=== PATIENT | female | born 1965 | race Caucasian/White ===

== ENCOUNTER 2021-11-04 07:30 | Emergency (ER) | payer OTHER, SELFPAY ==
--- NOTE | ~2021-11-04 | XR_ITS ---
EXAMINATION: XR chest 1V CLINICAL INFORMATION: Reason for Exam weakness COMPARISON: None TECHNIQUE: XR chest 1V Lungs and Mary: Lungs are hyperinflated. Flattening of the hemidiaphragm and increased AP diameter suggest underlying air trapping disease. There is mild diffuse increased interstitial lung marking. There is patchy opacity projecting over the right upper lobe superimposed on the anterior third rib could be bony, vascular versus lung nodule. Pleura: Blunting of costophrenic angles probably pleural thickening. Heart: The heart is normal in size. Mediastinum: The mediastinum is within normal limits.. Bones: Skeletal structures included are normal for patient's age. XR/XR chest 1V IMPRESSION: Small patchy opacity projecting over the right upper lobe superimposed on the right anterior third rib could be bony versus lung nodule. Follow-up recommended. May consider CT scan for further evaluation. If not performed follow-up chest PA and lateral inspiration expiration advised. Hyperinflated lungs suggesting air trapping disease COPD. Blunting of costophrenic angles probably small pleural effusion or pleural thickening.
--- NOTE | ~2021-11-04 | CT_ITS ---
EXAMINATION: CT CHEST WITHOUT CONTRAST CLINICAL INFORMATION: Covid 19 weakness. Nodule. COMPARISON: Chest x-ray 11/04/2021 TECHNIQUE: Multidetector volumetric CT imaging of the chest was done. Axial MIP volume rendering provided. Sagittal and coronal reformatted images were obtained. This CT examination was performed using dose optimization techniques as appropriate, variously including the following: *Automated exposure control *Adjustment of mA and/or kV according to patient size (this includes techniques or standardized protocols for targeted exams where dose is matched to indication/reason for exam; i.e. extremities or head) *Use of iterative reconstruction technique DLP: 176 mGy-cm FINDINGS: Heart is normal in size. There is no pericardial effusion. Normal caliber thoracic aorta. No gross mediastinal lymphadenopathy identified on today's noncontrast imaging. No pathologically enlarged axillary lymph nodes. Central airways are patent although some peripheral mucous plugging is noted. Lungs are well aerated. Mild biapical scarring. Mild dependent atelectasis. A small amount of lingular and right middle lobe atelectasis also noted. There is no lobar consolidation. No pleural effusion or pneumothorax. No suspicious pulmonary nodules. Visualized portions of the upper abdomen demonstrate surgical changes consistent with prior cholecystectomy. Mild diffuse degenerative changes of the spine. CT/CT chest wo con IMPRESSION: No CT evidence for acute abnormality within the chest. Fleischner guidelines were followed.
[2021-11-04 07:37] VITALS: BP 125/83; BP 142/80; PULSE 102; PULSE 85; RESP 20; TEMP 36.9; O2SAT 98; O2SAT 99; BMI 20.5
--- NOTE | 2021-11-04 07:40 | ECG_ITS ---
Test Reason : covid Blood Pressure : / mmHG Vent. Rate : 097 BPM Atrial Rate : 097 BPM P-R Int : 144 ms QRS Dur : 086 ms QT Int : 384 ms P-R-T Axes : 079 065 061 degrees QTc Int : 487 ms Normal sinus rhythm Prolonged QT Abnormal ECG No previous ECGs available Referred By: Regi Boyd Electronically Signed By:BIRD ALVARSE
--- NOTE | 2021-11-04 07:41 | ED.NAVMDI ---
HPI - Nausea/Vomiting/Diarrhea General Chief complaint: General Medical Stated complaint: nausea w/dry heaves,+covid home test Time Seen by Provider: 11/04/21 07:35 Source: patient and EMS Mode of arrival: EMS Limitations: other (poor historian ) History of Present Illness HPI Narrative: EMS notes that they were called to the house 3 times tonight refusals at 3a, 5am and patient agreed to come at 7am. MD elicited complaint: nausea, diarrhea, abdominal pain and other (COVID + yesterday , mom has covid as well ) Pertinent past history: other (PTSD, severe anxiety when I am sick it sends signals to the panic button in my brain. ) Onset (ago): day(s) (reports symptms started on ) Associated nausea: Yes Associated abdominal pain: Yes Location of pain: diffuse Radiation: diffuse Pain consistency: constant Severity: moderate Quality: cramping Exacerbating factors: eating Relieving factors: none Context: sick contacts (mom has covid ) Associated symptoms: fever/chills, headaches, loss of appetite, malaise, nausea/vomiting, weakness, anxiety, fatigue and other (severe anxiety , sore throat) Related Data Previous Rx's Medication Instructions Recorded metoclopramide HCl 10 mg tablet 5 mg PO Q6H PRN #10 tab 11/04/21 (Reglan) Allergies Allergy/AdvReac Type Severity Reaction Status Date / Time azithromycin [AZITHROMYCIN] Allergy Unknown UNKNOWN Verified 11/04/21 08:15 bupropion [BUPROPION] Allergy Unknown UNKNOWN Verified 11/04/21 08:15 gluten [GLUTEN] Allergy Unknown UNKNOWN Verified 11/04/21 08:15 ibuprofen [IBUPROFEN] Allergy Unknown UNKNOWN Verified 11/04/21 08:15 omeprazole [From PRILOSEC] Allergy Unknown UNKNOWN Verified 11/04/21 08:15 soy [SOY] Allergy Unknown UNKNOWN Verified 11/04/21 08:15 sumatriptan [SUMATRIPTAN] Allergy Unknown UNKNOWN Verified 11/04/21 08:15 valacyclovir [From VALTREX] Allergy Unknown UNKNOWN Verified 11/04/21 08:15 amitriptyline Allergy Unknown Verified 11/04/21 08:15 chlorhexidine Allergy Hives Verified 11/04/21 08:15 [From Hibiclens] ondansetron [From Zofran] Allergy Unknown Verified 11/04/21 08:15 propofol Allergy Unknown Verified 11/04/21 08:15 sucralfate Allergy Dizziness Verified 11/04/21 08:15 nut - unspecified AdvReac Unknown UNKNOWN Verified 11/04/21 08:15 [NUT - UNSPECIFIED] DAIRY PRODUCTS Allergy Unknown HEADACHE Uncoded 11/04/21 08:15 SSRI Allergy Unknown UNKNOWN Uncoded 11/04/21 08:15 Review of Systems Review of Systems: Constitutional : No Weight loss, No Fever, pos Chills, pos Fatigue, pos Malaise ENT/Mouth : pos sore throat, No Rhinorrhea Eyes: No Eye Pain, No Swelling, No Redness Cardiovascular : No Chest Pain, No SOB, No Dyspnea on Exertion, No Orthopnea, No Edema, No Palpitations Respiratory : No Cough, No Sputum, No Wheezing Gastrointestinal : pos Nausea, No Vomiting, pos Diarrhea, No Constipation, pos abdominal Pain, No Hematochezia, No Melena Genitourinary : No Dysuria, No Urinary Frequency, No Hematuria, Musculoskeletal : No joint pain, No Myalgias, No Joint Swelling Skin : No Skin Lesions, No rash Neuro : pos Weakness, No Numbness, No Dizziness, No Headache Psych : pos Anxiety/Panic, No Depression Heme/Lymph: No Bruising, No Bleeding,No Lymphadenopathy Endocrine : No Polyuria, No Polydipsia All other systems reviewed and are negative Gastrointestinal: Gastrointestinal: Reports nausea PMFSH Past Medical History Attestation statement: The following information was validated with the patient. Medical History (Updated 11/04/21 @ 08:46 by Regi Boyd DO) Anxiety PTSD (post-traumatic stress disorder) Surgical History (Updated 11/04/21 @ 07:44 by Regi Boyd DO) S/P cholecystectomy Social History Social History (Updated 11/04/21 @ 07:44 by Regi Boyd DO) Alcohol intake: never Patient Tobacco Use Status: Never used Tobacco Use of substances other than those prescribed or required for medical reasons: No Advance Directives: No Advance Directives Information Provided: Yes Physical Exam Vital Signs: Vital Signs: Last Vital Signs Temp 98.4 F 11/04/21 07:37 Pulse 89 11/04/21 10:30 Resp 16 11/04/21 10:30 BP 115/67 11/04/21 10:30 Pulse Ox 99 04/25/22 10:30 BMI result Body Mass Index 20.5 Appearance: Alert. Oriented X3. Crying, anxious, shaking, mild acute distress. Eyes: Pupils equal, round and reactive to light. ENT: Pharynx normal. Neck: Normal inspection. Neck supple. CVS: Normal heart rate and rhythm. Pulses normal. Respiratory: No respiratory distress. Breath sounds normal. Abdomen: Soft and mild diffuse ttp but no rebound Skin: Skin warm and dry. Normal skin color. Normal skin turgor. Extremities: No lower extremity edema. No calf ttp Neuro: Oriented X 3. No motor deficit. No sensory deficit. Course Course Course Narrative: patient on day 5 of symptoms - only on famotidine on [facility] form the patient has no qualifying conditions she has anxiety, PTSD is due for her booster in one month has had two vaccines will obtain CT scan to evaluate nodule 98% on RA - able to tolerate PO no COVID pneumonia MDM - Nausea/Vomiting/Diarrhea MDM Narrative Medical decision making narrative: 56 yo female with severe anxiety, PTSD comes in stating she has nausea, diarrhea, sore throat she is vaccinated x 2 - her mom has covid and she tested positive at home yesterday. She cannot handle being sick and has severe anxiety and she is panicking. At this time will obtain basic labs, she has no CP/SOB. CXR for COVID pneumonia ordered. IVF, IV ativan, IV reglan for nausea - suspect this is mostly anxiety driven. She denies SI. Lab Data Result diagrams: 11/04/21 08:08 11/04/21 08:08 Labs: Lab Results 11/04/21 11/04/21 11/04/21 Range/Units 08:08 08:08 08:08 WBC 5.3 (4.8-10.8) X10*3/uL RBC 4.58 (4.20-5.50) X10*6/uL Hgb 13.7 (12.0-16.0) g/dl Hct 40.3 (37.0-47.0) % MCV 88.0 (80.0-98.0) fL MCH 29.9 (27.0-33.0) pg MCHC 34.0 (31.0-35.0) g/dl RDW 12.2 (11.0-16.0) % Plt Count 171 (160-400) X10*3/uL MPV 10.5 (9.4-12.3) fL Immature Gran % (Auto) 0.4 (0.0-0.4) % Neut % (Auto) 88.5 H (45-73) % Lymph % (Auto) 5.1 L (20-40) % [place] % (Auto) 5.6 (2-11) % Eos % (Auto) 0.0 (0-4) % Baso % (Auto) 0.4 (0-2) % Lymph # (Auto) 0.3 L (1.2-4.9) X10*3/uL [place] # (Auto) 0.3 (0.1-1.2) X10*3/uL Eos # (Auto) 0.0 (0.0-0.4) X10*3/uL Baso # (Auto) 0.0 (0.0-0.2) X10*3/uL Abs Immat Gran (auto) 0.02 (0.00-0.03) X10*3/uL Absolute Neuts (auto) 4.7 (2.0-8.3) x10*3/uL Absolute Nucleated RBC 0.000 (0.0-0.012) X10*3/uL Nucleated RBC % (auto) 0.0 (0.0-0.2) /100WBC Sodium 141 (135-145) mmol/L Potassium 3.5 (3.3-5.1) mmol/L Chloride 104 (96-108) mmol/L Carbon Dioxide 28 (22-29) mmol/L Anion Gap 13 (12-20) BUN 15 (9-16) mg/dL Creatinine 0.83 (0.5-1.4) mg/dL Estim Creat Clear Calc 53.6 Estimated GFR > 60 Random Glucose 123 H (60-115) mg/dL Calcium 9.9 (8.4-10.2) mg/dL Magnesium 1.9 (1.6-2.6) mg/dL Total Bilirubin 0.6 (0.0-1.0) mg/dL Direct Bilirubin 0.2 (0.0-0.5) mg/dL AST 28 (5-31) U/L ALT 27 (0-31) U/L Alkaline Phosphatase 61 (39-117) U/L Total Protein 6.8 (6.5-8.0) g/dL Albumin 4.5 (3.5-5.0) g/dL Lipase 13 (8-78) U/L Urine Color Urine Appearance Urine pH (5.0-8.0) Ur Specific [place] (1.005-1.025) Urine Protein (NEG-TRACE) MG/DL Urine Glucose (UA) (NEG) MG/DL Urine Ketones (NEG) MG/DL Urine Blood (NEG) Urine Nitrite (NEG) Ur Leukocyte Esterase (NEG) Urine RBC (0) /HPF Urine WBC (0-4) /HPF Ur Squamous Epith Cells /LPF Urine Bacteria /LPF COVID-19 (RASHEED) Positive A (Negative) COVID-19 Clin Com See Note 11/04/21 Range/Units 10:15 WBC (4.8-10.8) X10*3/uL RBC (4.20-5.50) X10*6/uL Hgb (12.0-16.0) g/dl Hct (37.0-47.0) % MCV (80.0-98.0) fL MCH (27.0-33.0) pg MCHC (31.0-35.0) g/dl RDW (11.0-16.0) % Plt Count (160-400) X10*3/uL MPV (9.4-12.3) fL Immature Gran % (Auto) (0.0-0.4) % Neut % (Auto) (45-73) % Lymph % (Auto) (20-40) % [place] % (Auto) (2-11) % Eos % (Auto) (0-4) % Baso % (Auto) (0-2) % Lymph # (Auto) (1.2-4.9) X10*3/uL [place] # (Auto) (0.1-1.2) X10*3/uL Eos # (Auto) (0.0-0.4) X10*3/uL Baso # (Auto) (0.0-0.2) X10*3/uL Abs Immat Gran (auto) (0.00-0.03) X10*3/uL Absolute Neuts (auto) (2.0-8.3) x10*3/uL Absolute Nucleated RBC (0.0-0.012) X10*3/uL Nucleated RBC % (auto) (0.0-0.2) /100WBC Sodium (135-145) mmol/L Potassium (3.3-5.1) mmol/L Chloride (96-108) mmol/L Carbon Dioxide (22-29) mmol/L Anion Gap (12-20) BUN (9-16) mg/dL Creatinine (0.5-1.4) mg/dL Estim Creat Clear Calc Estimated GFR Random Glucose (60-115) mg/dL Calcium (8.4-10.2) mg/dL Magnesium (1.6-2.6) mg/dL Total Bilirubin (0.0-1.0) mg/dL Direct Bilirubin (0.0-0.5) mg/dL AST (5-31) U/L ALT (0-31) U/L Alkaline Phosphatase (39-117) U/L Total Protein (6.5-8.0) g/dL Albumin (3.5-5.0) g/dL Lipase (8-78) U/L Urine Color YELLOW Urine Appearance HAZY Urine pH 6.0 (5.0-8.0) Ur Specific [place] 1.010 (1.005-1.025) Urine Protein NEG (NEG-TRACE) MG/DL Urine Glucose (UA) NEG (NEG) MG/DL Urine Ketones 15 (NEG) MG/DL Urine Blood 2+ H (NEG) Urine Nitrite NEG (NEG) Ur Leukocyte Esterase NEG (NEG) Urine RBC 1-4 (0) /HPF Urine WBC 0 (0-4) /HPF Ur Squamous Epith Cells 1+ /LPF Urine Bacteria TRACE /LPF COVID-19 (RASHEED) (Negative) COVID-19 Clin Com ECG Data Attestation: I personally reviewed and interpreted this ECG as follows: ECG interpretation date: 11/04/21 ECG interpretation time: 08:33 Interpretation: Rate: 97 Rhythm: NSR [place]: normal Normal P waves. Normal DERIC. Normal QRS complex. ST T wave : normal no IHSAN qTC: prolonged prior studies: no acute ischemia The study has been interpreted contemporaneously by me. . Discharge Plan Discharge Clinical Impression: Anxiety, COVID-19 Patient Disposition: Home, Self-Care Instructions: Anxiety (ED), COVID-19 (Coronavirus Disease 2019) (ED) Additional Instructions: return to ED for any worsening symptoms or concerns if you become so short of breath you cannot walk to the bathroom please seek medical care there is no evidence of COVID pneumonia on your CT chest Prescriptions: New metoclopramide HCl [Reglan] 10 mg tablet 5 mg PO Q6H PRN (Reason: nausea and vomiting) Qty: 10 0RF Stand Alone Forms: Work/School Release
[2021-11-04 08:12] LABS: MANUAL DIFF FLAG NO
[2021-11-04 08:15] LABS: Basophils Percent Auto 0.4 % (0-2); Hematocrit 40.3 % (37.0-47.0); Hemoglobin 13.7 g/dl (12.0-16.0); Imm Gran Abs Auto 0.02 X10*3/uL (0.00-0.03); Imm Gran Pct Auto 0.4 % (0.0-0.4); Lymphocytes Absolute Auto 0.3 X10*3/uL (1.2-4.9); Lymphocytes Percent Auto 5.1 % (20-40); Mean Corpuscular Hemoglobin 29.9 pg (27.0-33.0); Mean Platelet Volume 10.5 fL (9.4-12.3); Monocytes Absolute Auto 0.3 X10*3/uL (0.1-1.2); Monocytes Percent Auto 5.6 % (2-11); Neutrophils Absolute Auto 4.7 x10*3/uL (2.0-8.3); Neutrophils Percent Auto 88.5 % (45-73); Platelet Count 171 X10*3/uL (160-400); Red Blood Count 4.58 X10*6/uL (4.20-5.50); Red Cell Distribution Width 12.2 % (11.0-16.0); White Blood Count 5.3 X10*3/uL (4.8-10.8)
[2021-11-04] MEDS: 0.9 % Sodium Chloride 1,000 ML 999 ML IVCONT (08:16)
[2021-11-04] MEDS: LORazepam 2 MG/ML VIAL 0.5 MG IVPUSH (08:17)
[2021-11-04] MEDS: Metoclopramide HCl 10 MG/2 ML VIAL 5 MG IVPUSH (08:20)
[2021-11-04 08:31] LABS: Alanine Aminotransferase 27 U/L (0-31); Albumin Level 4.5 g/dL (3.5-5.0); Alkaline Phosphatase 61 U/L (39-117); Anion Gap 13 (12-20); Aspartate Amino Transferase 28 U/L (5-31); Bilirubin Direct 0.2 mg/dL (0.0-0.5); Bilirubin Total 0.6 mg/dL (0.0-1.0); Blood Urea Nitrogen 15 mg/dL (9-16); Calcium 9.9 mg/dL (8.4-10.2); Carbon Dioxide 28 mmol/L (22-29); Chloride 104 mmol/L (96-108); Creatinine Clr Calc Pharmacy 53.6; Estimated Glomerular Filt Rate > 60; Glucose Random 123 mg/dL (60-115); Lipase 13 U/L (8-78); Magnesium 1.9 mg/dL (1.6-2.6); Potassium 3.5 mmol/L (3.3-5.1); Sodium 141 mmol/L (135-145); Total Protein 6.8 g/dL (6.5-8.0)
[2021-11-04 08:39] LABS: COVID-19 Test Positive (Negative); IDNOW Serial# 16C4AD1C
[2021-11-04 08:46] VITALS: BP 119/76; PULSE 97; RESP 16; O2SAT 99
[2021-11-04 10:21] LABS: Appearance Urine HAZY; Color Urine YELLOW; Glucose Urine UA NEG (NEG); Leukocyte Esterase Urine NEG (NEG); Nitrite Urine NEG (NEG); UACC Culture Trigger NO; Urine Blood 2+ (NEG); Urine Ketones 15 MG/DL (NEG); Urine Protein NEG (NEG-TRACE)
[2021-11-04 10:30] VITALS: BP 115/67; PULSE 89; RESP 16; O2SAT 99
[2021-11-04] MEDS: Magnesium Hydrox/Alum Hydrox 30 ML ORAL.SUSP 15 ML PO (10:31)
[2021-11-04] MEDS: Acetaminophen 325 MG TABLET PO (10:31)
[2021-11-04 10:49] LABS: Squamous Epithelial Cell Urine 1+ /LPF
[2021-11-04 10:50] LABS: Bacteria Urine TRACE /LPF; WBC Urine 0 /HPF (0-4)
[2021-11-04 12:05] VITALS: BP 113/61; PULSE 79; RESP 16; O2SAT 99
--- NOTE | 2021-11-04 12:29 | PHA.MEDREC ---
Pharmacy Consult ? Medication Reconciliation Pharmacy has completed the medication reconciliation. No remarkable issues. Ana Pandya, AndraD
== END 2021-11-04 12:34 | disposition home or self-care (01) ==
PROVIDERS: Emergency Provider Emergency Medicine; PCP Family Medicine
DX: U07.1 COVID-19 (principal); F41.1 Generalized anxiety disorder; F43.0 Acute stress reaction; M54.6 Pain in thoracic spine; Z79.899 Other long term (current) drug therapy
CPT/HCPCS: 71045; 71250; 80048; 80076; 81001; 83690; 83735; 85025; 87635; 93005; 96361; 96374; 96375; 99284; J2060; J2765

== ENCOUNTER 2023-08-16 10:09 | Emergency (ER) | payer OTHER, SELFPAY ==
--- NOTE | ~2023-08-16 | CT_ITS ---
EXAMINATION: CT ABDOMEN AND PELVIS WITH CONTRAST CLINICAL INFORMATION: Upper abdominal pain, tenderness to palpation, nausea/vomiting/diarrhea COMPARISON: None available. TECHNIQUE: Multidetector volumetric images were obtained from the superior aspect of the liver through the pubic symphysis following administration 85 mL of Omnipaque 350 intravenous contrast. Sagittal and coronal reformatted images were obtained on the technologist's workstation. Oral contrast: No This CT examination was performed using dose optimization techniques as appropriate, variously including the following: *Automated exposure control *Adjustment of mA and/or kV according to patient size (this includes techniques or standardized protocols for targeted exams where dose is matched to indication/reason for exam; i.e. extremities or head) *Use of iterative reconstruction technique DLP: 292 mGy-cm FINDINGS: LUNG BASES: Unremarkable. LIVER AND BILIARY TREE: Unremarkable. GALLBLADDER: Status post cholecystectomy. PANCREAS: Unremarkable. SPLEEN: Unremarkable. ADRENAL GLANDS: Unremarkable. KIDNEYS AND URETERS: Unremarkable. GASTROINTESTINAL TRACT: Mild multifocal wall thickening of the distal ileum (series 6, image 39). No bowel dilation or perienteric fat stranding/fluid collections. Mild colonic diverticulosis without evidence of acute diverticulitis. Normal appendix. VASCULAR: Unremarkable LYMPH NODES: No lymphadenopathy. PERITONEUM: No ascites. BLADDER: Mild urinary bladder wall thickening, greater than expected for degree of distention. PELVIC VISCERA: Unremarkable. ABDOMINAL AND PELVIC WALL: Unremarkable. OSSEOUS STRUCTURES: Unremarkable. CT/CT abdomen pelvis w IV con IMPRESSION: 1. Mild multifocal wall thickening of the distal ileum, which may reflect infectious/inflammatory enteritis. No bowel dilation or perienteric fat stranding/fluid collections. 2. Mild urinary bladder wall thickening, greater than expected for degree of distention. Recommend correlation with urinalysis to exclude cystitis.
[2023-08-16 10:17] VITALS: BP 135/84; BP 141/74; PULSE 103; PULSE 73; RESP 16; TEMP 36.4; O2SAT 100; BMI 21.4
--- NOTE | 2023-08-16 10:39 | PC.NURSE ---
pt comes from home for n/v/d and increased anxiety since last night. pt came in teary, yelling, and punching the stretcher and stating she is angry from anxiety. pt has history of PTSD, anxiety, and panic disorder. all exacerbate when sick. takes lorazepam. pt sts unable to take home lorazepam due to n/v. pt able to calm down, changed over to hospital attire. vss. 20G IV placed to LAC by EMS and pt given 250cc fluids. pt stating she is dehydrated and needs fluids, nausea medication, pain medication, and ativan in order to feel better. awaiting provider pickup. call justice within reach. plan of care ongoing.
--- NOTE | 2023-08-16 10:45 | ED.GENADULT ---
HPI - General Adult General Chief complaint: Nausea/Vomiting/Diarrhea Stated complaint: NAUSEA VOMITING Time Seen by Provider: 08/16/23 10:21 Source: patient Mode of arrival: EMS Limitations: no limitations History of Present Illness HPI narrative: Patient is a 57-year-old female who presents to the emergency department via EMS for evaluation. She reports since yesterday with nausea and diarrhea, reports her stools to be yellow in color with a few episodes, and poor p.o. intake. Today she developed vomiting with yellow emesis, no relief from Reglan at home. She is associated upper abdominal pain that she reports is primarily to the epigastric region but also to her right upper abdomen, reports a history of cholecystectomy in 2018. She does report that she is feeling increasingly anxious, she was unable to take her lorazepam at home today due to her nausea and was worried that she may vomit. Denies fevers, chills, headache, neck pain, back pain, hematochezia, melena, coffee-ground like emesis, urinary symptoms. Related Data Home Medications Medication Instructions Recorded Confirmed acetaminophen 325 mg tablet 325 mg PO QID PRN Pain 11/04/21 11/04/21 (Tylenol) famotidine 20 mg tablet 20 mg PO BEDTIME 11/04/21 11/04/21 lorazepam 0.5 mg tablet 0.5 mg PO DAILY PRN Anxiety 11/04/21 11/04/21 magnesium 250 mg tablet 250 mg PO DAILY 11/04/21 11/04/21 omega-3 fatty acids-fish oil 684 1 cap PO DAILY 11/04/21 11/04/21 mg-1,200 mg capsule,delayed release Previous Rx's Medication Instructions Recorded metoclopramide HCl 10 mg tablet 5 mg (1/2 x 10 mg) PO Q6H PRN 11/04/21 (Reglan) nausea and vomiting #10 tabs metoclopramide HCl 10 mg tablet 10 mg PO Q6H PRN nausea and 08/16/23 (Reglan) vomiting #10 tabs Allergies Allergy/AdvReac Type Severity Reaction Status Date / Time azithromycin [AZITHROMYCIN] Allergy Unknown UNKNOWN Verified 11/04/21 08:15 bupropion [BUPROPION] Allergy Unknown UNKNOWN Verified 11/04/21 08:15 gluten [GLUTEN] Allergy Unknown UNKNOWN Verified 11/04/21 08:15 ibuprofen [IBUPROFEN] Allergy Unknown UNKNOWN Verified 11/04/21 08:15 omeprazole [From PRILOSEC] Allergy Unknown UNKNOWN Verified 11/04/21 08:15 soy [SOY] Allergy Unknown UNKNOWN Verified 11/04/21 08:15 sumatriptan [SUMATRIPTAN] Allergy Unknown UNKNOWN Verified 11/04/21 08:15 valacyclovir [From VALTREX] Allergy Unknown UNKNOWN Verified 11/04/21 08:15 amitriptyline Allergy Unknown Verified 11/04/21 08:15 chlorhexidine Allergy Hives Verified 11/04/21 08:15 [From Hibiclens] ondansetron [From Zofran] Allergy Unknown Verified 11/04/21 08:15 propofol Allergy Unknown Verified 11/04/21 08:15 sucralfate Allergy Dizziness Verified 11/04/21 08:15 nut - unspecified AdvReac Unknown UNKNOWN Verified 11/04/21 08:15 [NUT - UNSPECIFIED] DAIRY PRODUCTS Allergy Unknown HEADACHE Uncoded 11/04/21 08:15 SSRI Allergy Unknown UNKNOWN Uncoded 11/04/21 08:15 Review of Systems Review of Systems: Yes all other systems are reviewed and are negative PMFSH Past Medical History Attestation statement: The following information was validated with the patient. Source: old records reviewed Medical History Anxiety PTSD (post-traumatic stress disorder) Surgical History S/P cholecystectomy Social History Social History (Updated 11/04/21 @ 07:44 by Yvonne Boyd DO) Alcohol intake: never Patient Tobacco Use Status: Never used Tobacco Smoked in Last 30 Days: No Use of substances other than those prescribed or required for medical reasons: No Advance Directives: Yes Advance Directives Information Provided: No Advance Directives on File: No Physical Exam ED Vital Signs: Vital Signs - 24 hr 08/16/23 10:17 08/16/23 12:35 Temperature 97.5 F 97.8 F Pulse Rate 73 74 Respiratory Rate 16 16 Blood Pressure 141/74 H 135/81 Pulse Oximetry 100 100 Oxygen Delivery Method Room Air Room Air BMI result Body Mass Index 21.4 Appearance: Alert.?Oriented to person, place and time. No acute distress.?Normal affect. Eyes: Pupils equal, round and reactive to light.? ENT: Pharynx normal.?? Neck: Normal inspection.? Neck supple.?? CVS: Heart sounds normal. Normal heart rate and rhythm.? Pulses normal.?? Respiratory: No respiratory distress.? Lung sounds clear to auscultation bilaterally?? Abdomen: Soft with diffuse upper abdominal tenderness upon palpation Normoactive bowel sounds. No pulsatile mass.?? Skin: Skin warm and dry.? Normal skin color.? Normal skin turgor.?? Extremities: No lower extremity edema.? No calf ttp? Neuro: Moves all extremities spontaneously. Sensation intact bilaterally. CN II-XII intact. No focal neuro deficits. Ambulates with normal steady gait. Course Reevaluation(s) Reevaluation #1: CBC is without leukocytosis or anemia. Overall unremarkable CMP, lipase within normal limits. Urinalysis with microscopic hematuria which has been seen and prior urinalysis as well, no evidence of urinary infection. COVID-19/influ[address] CT of the abdomen and pelvis revealing multifocal wall thickening of the distal ileum reflecting infectious versus inflammatory enteritis, mild thickening of the bladder wall however as aforementioned do not suspect this to be acute UTI, culture to follow. Discussed concern for possible viral etiology, given duration would not initiate empiric antibiotics at this time, discussed conservative treatment, and re-evaluation should symptoms not improve after 7 days or significantly worsen. Tolerated PO trial. Does not appear to have acute dehydration, intractable vomiting, electrolyte abnormality or KATHARINE, no significant comorbidities to suggest indication for hospitalization. Stable for discharge, strict return precautions. All questions answered. Time: 14:11 Reevaluation #2: Medications Administered Discontinued Medications Generic Name Dose Route Start Last Admin Trade Name Bennyq PRN Reason Stop Dose Admin Sodium Chloride 1,000 mls @ 999 mls/hr 08/16/23 11:30 08/16/23 12:31 Ns IV 08/16/23 12:30 999 mls/hr .Q1H1M MIL Administration Iohexol 85 ml 08/16/23 12:10 08/16/23 12:10 Iohexol 350 Mg/Ml 100 Ml Infus..Btl IV 08/16/23 12:11 85 ml ONCE ONE Administration Metoclopramide HCl 10 mg 08/16/23 11:16 08/16/23 12:31 Metoclopramide Hcl 10 Mg/2 Ml Vial IVPUSH 08/16/23 11:17 10 mg ONCE ONE Administration Medical Decision Making Medical Decision Making [facility] Narrative: Patient is a 57-year-old female with past medical history anxiety, PTSD, presenting to emergency department for evaluation of nausea vomiting diarrhea and abdominal pain as per HPI. Notable diffuse upper abdominal tenderness upon palpation, afebrile without tachycardia tachypnea or hypoxia. Will obtain CBC to evaluate for leukocytosis/ anemia, CMP and lipase to evaluate for abnormal electrolytes /abnormal renal function/ abnormal hepatic/biliary function, CT AP, viral testing and Urinalysis. Differential Diagnosis Differential Diagnoses: The differential diagnosis associated with the presentation includes (gastritis, PUD, viral syndrome, CBD stone, pancreatitis) Lab Data 08/16/23 11:37 08/16/23 11:37 Labs: Lab Results 08/16/23 08/16/23 Range/Units 11:37 12:35 WBC 5.9 (4.8-10.8) X10*3/uL RBC 4.39 (4.20-5.50) X10*6/uL Hgb 13.3 (12.0-16.0) g/dl Hct 38.5 (37.0-47.0) % MCV 87.7 (80.0-98.0) fL MCH 30.3 (27.0-33.0) pg MCHC 34.5 (31.0-35.0) g/dl RDW 12.1 (11.0-16.0) % Plt Count 183 (160-400) X10*3/uL MPV 10.7 (9.4-12.3) fL Immature Gran % (Auto) 0.2 (0.0-0.4) % Neut % (Auto) 88.9 H (45-73) % Lymph % (Auto) 7.5 L (20-40) % [place] % (Auto) 2.7 (2-11) % Eos % (Auto) 0.2 (0-4) % Baso % (Auto) 0.5 (0-2) % Lymph # (Auto) 0.4 L (1.2-4.9) X10*3/uL [place] # (Auto) 0.2 (0.1-1.2) X10*3/uL Eos # (Auto) 0.0 (0.0-0.4) X10*3/uL Baso # (Auto) 0.0 (0.0-0.2) X10*3/uL Abs Immat Gran (auto) 0.01 (0.00-0.03) X10*3/uL Absolute Neuts (auto) 5.2 (2.0-8.3) x10*3/uL Absolute Nucleated RBC 0.000 (0.0-0.012) X10*3/uL Nucleated RBC % (auto) 0.0 (0.0-0.2) /100WBC Sodium 140 (135-145) mmol/L Potassium 3.9 (3.3-5.1) mmol/L Chloride 106 (96-108) mmol/L Carbon Dioxide 27 (22-29) mmol/L Anion Gap 11 L (12-20) BUN 12 (9-16) mg/dL Creatinine 0.73 (0.5-1.4) mg/dL Estim Creat Clear Calc 60.3 Estimated GFR > 60 Random Glucose 104 (60-115) mg/dL Calcium 9.3 D (8.4-10.2) mg/dL Total Bilirubin 0.4 (0.0-1.0) mg/dL AST 25 (5-31) U/L ALT 21 (0-31) U/L Alkaline Phosphatase 58 (39-117) U/L Total Protein 6.7 (6.5-8.0) g/dL Albumin 4.2 (3.5-5.0) g/dL Lipase 23 (8-78) U/L Urine Color Yellow Urine Appearance Clear Urine pH 7.5 (5.0-9.0) Ur Specific [place] 1.020 (1.005-1.025) Urine Protein Negative (Neg-Trace) mg/dL Urine Glucose (UA) Negative (Negative) mg/dL Urine Ketones Trace (Negative) mg/dL Urine Blood Small (1+) H (Negative) Urine Nitrite Negative (Negative) Ur Leukocyte Esterase Negative (Negative) Urine RBC 3-5 H (0-2) /HPF Urine WBC 0-5 (0-5) /HPF Ur Squamous Epith Cells 0-2 (0-2) /HPF Urine Bacteria None Seen (None Seen) Hyaline Casts 0-2 (0-2) /LPF COVID-19 (RASHEED) Negative (Negative) COVID-19 Clin Com See Note Influenza Type A (LEONCIO) Negative (Negative) Influenza Type B (LEONCIO) Negative (Negative) Influenza A & B Note See Note Discharge Plan Discharge Clinical Impression: Gastroenteritis Patient Disposition: Home, Self-Care Instructions: Gastroenteritis (ED) Additional Instructions: I suspect that you likely have a viral infection or food borne illness that is resulting in these symptoms. Consume only clear liquids today and tomorrow and then progress to a bland diet Introduce a bland diet including crackers, bananas, rice, soup, toast, and boiled vegetables. This may progress to plain baked or boiled chicken or turkey. Avoid dairy products or foods high in fat or grease. Use Reglan as needed for nausea. Follow-up with your primary care provider within 3 days. Return back to emergency department any new or worsening symptoms or concerns. Prescriptions: New metoclopramide HCl [Reglan] 10 mg tablet 10 mg PO Q6H PRN (Reason: nausea and vomiting) Qty: 10 0RF No Action metoclopramide HCl [Reglan] 10 mg tablet 5 mg PO Q6H PRN (Reason: nausea and vomiting) Qty: 10 0RF acetaminophen [Tylenol] 325 mg Tablet 325 mg PO QID PRN (Reason: Pain) famotidine 20 mg Tablet 20 mg PO BEDTIME lorazepam 0.5 mg Tablet 0.5 mg PO DAILY PRN (Reason: Anxiety) magnesium 250 mg Tablet 250 mg PO DAILY [place] 3 Fish Oil 684-1,200 mg Capsule,Delayed Release(Dr/Ec) 1 cap PO DAILY Referrals: Ирина Chan MD [Primary Care Provider] -
[2023-08-16 11:41] LABS: MANUAL DIFF FLAG NO
[2023-08-16 11:49] LABS: Basophils Percent Auto 0.5 % (0-2); Eosinophils Percent Auto 0.2 % (0-4); Hematocrit 38.5 % (37.0-47.0); Hemoglobin 13.3 g/dl (12.0-16.0); Imm Gran Abs Auto 0.01 X10*3/uL (0.00-0.03); Imm Gran Pct Auto 0.2 % (0.0-0.4); Lymphocytes Absolute Auto 0.4 X10*3/uL (1.2-4.9); Lymphocytes Percent Auto 7.5 % (20-40); Mean Corpuscular HGB Conc 34.5 g/dl (31.0-35.0); Mean Corpuscular Hemoglobin 30.3 pg (27.0-33.0); Mean Corpuscular Volume 87.7 fL (80.0-98.0); Mean Platelet Volume 10.7 fL (9.4-12.3); Monocytes Absolute Auto 0.2 X10*3/uL (0.1-1.2); Monocytes Percent Auto 2.7 % (2-11); Neutrophils Absolute Auto 5.2 x10*3/uL (2.0-8.3); Neutrophils Percent Auto 88.9 % (45-73); Platelet Count 183 X10*3/uL (160-400); Red Blood Count 4.39 X10*6/uL (4.20-5.50); Red Cell Distribution Width 12.1 % (11.0-16.0); White Blood Count 5.9 X10*3/uL (4.8-10.8)
[2023-08-16 12:01] LABS: IDNOW Serial# 9DB6401D; Influenza A Negative (Negative); Influenza B2 Negative (Negative)
[2023-08-16 12:02] LABS: COVID-19 Test Negative (Negative); IDNOW Serial# 58CA691E
[2023-08-16 12:04] LABS: Alanine Aminotransferase 21 U/L (0-31); Albumin Level 4.2 g/dL (3.5-5.0); Alkaline Phosphatase 58 U/L (39-117); Anion Gap 11 (12-20); Aspartate Amino Transferase 25 U/L (5-31); Bilirubin Total 0.4 mg/dL (0.0-1.0); Blood Urea Nitrogen 12 mg/dL (9-16); Calcium 9.3 mg/dL (8.4-10.2); Carbon Dioxide 27 mmol/L (22-29); Chloride 106 mmol/L (96-108); Creatinine Clr Calc Pharmacy 60.3; Estimated Glomerular Filt Rate > 60; Glucose Random 104 mg/dL (60-115); Lipase 23 U/L (8-78); Potassium 3.9 mmol/L (3.3-5.1); Sodium 140 mmol/L (135-145); Total Protein 6.7 g/dL (6.5-8.0)
[2023-08-16] MEDS: iohexoL 350 MG/ML 100 ML INFUS..BTL 85 ML IV (12:10)
[2023-08-16] MEDS: Metoclopramide HCl 10 MG/2 ML VIAL IVPUSH (12:31)
[2023-08-16] MEDS: 0.9 % Sodium Chloride 1,000 ML 999 ML IV (12:31)
[2023-08-16 12:35] VITALS: BP 135/81; PULSE 74; RESP 16; TEMP 36.6; O2SAT 100
[2023-08-16 12:43] LABS: Appearance Urine Clear; Color Urine Yellow; Glucose Urine UA Negative (Negative); Leukocyte Esterase Urine Negative (Negative); Nitrite Urine Negative (Negative); PH 7.5 (5.0-9.0); UMIC TRIGGER UACC YES; Urine Blood Small (1+) (Negative); Urine Ketones Trace mg/dL (Negative); Urine Protein Negative (Neg-Trace)
[2023-08-16 12:58] LABS: Bacteria Urine None Seen (None Seen); Hyaline Casts Urine 0-2 /LPF (0-2); Squamous Epithelial Cell Urine 0-2 /HPF (0-2); WBC Urine 0-5 /HPF (0-5)
== END 2023-08-16 14:42 | disposition home or self-care (01) ==
PROVIDERS: Nurse Practitioner Family; Emergency Provider Student in an Organized Health Care Education/Training Program; PCP Family Medicine
DX: K52.9 Noninfective gastroenteritis and colitis, unspecified (principal); R11.2 Nausea with vomiting, unspecified; Z11.52 Encounter for screening for COVID-19; Z79.899 Other long term (current) drug therapy
CPT/HCPCS: 74177; 80053; 81001; 83690; 85025; 87502; 87635; 96361; 96374; 99284; J2765; Q9967

== ENCOUNTER 2024-01-17 12:02 | Emergency (ER) | payer OTHER, SELFPAY ==
[2024-01-17 12:06] VITALS: BP 128/78; PULSE 80; O2SAT 99
[2024-01-17 12:31] VITALS: BP 130/107; PULSE 75; RESP 16; TEMP 36.5; O2SAT 100; BMI 21.5
--- NOTE | 2024-01-17 12:50 | ED.GENADULT ---
HPI - General Adult General Chief complaint: Nausea/Vomiting/Diarrhea Stated complaint: NAUSEA VOMITING Time Seen by Provider: 01/17/24 12:48 Source: patient, family (patient's daughter) and EMS Mode of arrival: EMS Limitations: no limitations History of Present Illness ED Provider: Carlotta Lozada PA-C HPI narrative: Patient is a 58 year old assigned female at with a history of anxiety presenting to the emergency department today with nausea and increased anxiety this morning. Patient states that she has been feeling very anxious lately, under much more stress being in charge of organizing her parents lives / helping her father care for her demented mother. Patient states that the humidity makes her anxiety much worse and the weather lately has been bad. Patient states that her HVAC system also hasn't been working as well as she would like it to. Patient denies any dizziness, lightheadedness, abdominal pain, fever, chills, blurry vision, double vision, loss of vision, chest pain, difficulty breathing, shortness of breath, back pain, night sweats, pain with urination, increased urinary frequency, increased urinary urgency, blood in her urine or stool, syncope or a near syncopal episode, recent trauma or falls, bowel incontinence, bladder incontinence, or any other complaints at this time. Onset (ago): day(s) Severity: mild Severity scale (1-10): 3 Relieving factors: none Exacerbating factors: none Associated symptoms: nausea/vomiting Treatments prior to arrival: none Related Data Home Medications ?Medication ?Instructions ?Recorded ?Confirmed acetaminophen 325 mg tablet 325 mg PO QID PRN Pain 11/04/21 11/04/21 (Tylenol) famotidine 20 mg tablet 20 mg PO BEDTIME 11/04/21 11/04/21 lorazepam 0.5 mg tablet 0.5 mg PO DAILY PRN Anxiety 11/04/21 11/04/21 magnesium 250 mg tablet 250 mg PO DAILY 11/04/21 11/04/21 omega-3 fatty acids-fish oil 684 1 cap PO DAILY 11/04/21 11/04/21 mg-1,200 mg capsule,delayed release Previous Rx's ?Medication ?Instructions ?Recorded metoclopramide HCl 10 mg tablet 5 mg (1/2 x 10 mg) PO Q6H PRN 11/04/21 (Reglan) nausea and vomiting #10 tabs metoclopramide HCl 10 mg tablet 10 mg PO Q6H PRN nausea and 08/16/23 (Reglan) vomiting #10 tabs Allergies Allergy/AdvReac Type Severity Reaction Status Date / Time azithromycin [AZITHROMYCIN] Allergy Unknown UNKNOWN Verified 01/17/24 12:33 bupropion [BUPROPION] Allergy Unknown UNKNOWN Verified 01/17/24 12:33 gluten [GLUTEN] Allergy Unknown UNKNOWN Verified 01/17/24 12:33 ibuprofen [IBUPROFEN] Allergy Unknown UNKNOWN Verified 01/17/24 12:33 omeprazole [From PRILOSEC] Allergy Unknown UNKNOWN Verified 01/17/24 12:33 soy [SOY] Allergy Unknown UNKNOWN Verified 01/17/24 12:33 sumatriptan [SUMATRIPTAN] Allergy Unknown UNKNOWN Verified 01/17/24 12:33 valacyclovir [From VALTREX] Allergy Unknown UNKNOWN Verified 01/17/24 12:33 amitriptyline Allergy Unknown Verified 01/17/24 12:33 chlorhexidine Allergy Hives Verified 01/17/24 12:33 [From Hibiclens] ondansetron [From Zofran] Allergy Unknown Verified 01/17/24 12:33 propofol Allergy Unknown Verified 01/17/24 12:33 sucralfate Allergy Dizziness Verified 01/17/24 12:33 nut - unspecified AdvReac Unknown UNKNOWN Verified 01/17/24 12:33 [NUT - UNSPECIFIED] metoclopramide [From Reglan] AdvReac Redness of Verified 01/17/24 12:33 Skin DAIRY PRODUCTS Allergy Unknown HEADACHE Uncoded 01/17/24 12:33 SSRI Allergy Unknown UNKNOWN Uncoded 01/17/24 12:33 Review of Systems Constitutional: Constitutional: Reports no additional constitutional complaints, Denies chills, Denies fever(s) and Denies night sweats Eyes: Eyes: Reports no additional eye complaints, Denies blurry vision, Denies change in vision, Denies diplopia, Denies eye discharge, Denies loss of vision and Denies eye pain ENT: Denies dizziness Cardiovascular: Cardiovascular: Reports no additional cardiovascular complaints, Denies chest pain, Denies lightheadedness, Denies Loss of Consciousness and Denies dyspnea Respiratory: Respiratory: Reports no additional respiratory complaints and Denies dyspnea Gastrointestinal: Gastrointestinal: Reports no additional gastrointestinal complaints, Denies abdominal pain, Denies melena, Denies hematochezia, Denies change in bowel habits, Denies change in stool character, Reports nausea and Reports vomiting Genitourinary: Genitourinary: Denies hematuria, Denies urinary frequency, Denies dysuria, Denies urinary incontinence, Denies urinary hesitancy and Denies urinary urgency Musculoskeletal: Musculoskeletal: Reports no additional musculoskeletal complaints, Denies numbness and Denies tingling Neurologic: Denies dizziness, Denies loss of vision, Denies numbness and Denies tingling Psychiatric: Psychiatric: Reports anxiety Endocrine: Endocrine: Reports no additional endocrine complaints Hematologic/Lymphatic: Hematologic/Lymphatic: Reports no additional hematologic/lymphatic complaints Allergic/Immunologic: Allergic/Immunologic: Reports no additional allergic/immunologic complaints PMFSH Past Medical History Attestation statement: The following information was validated with the patient. (all information validated with the patient's daughter) Source: old records reviewed, obtained from family (patient's daughter provided additional history and confirmed the history provided by the patient) and nursing notes reviewed Medical History Anxiety PTSD (post-traumatic stress disorder) Surgical History S/P cholecystectomy Social History Social History Alcohol intake: never Patient Tobacco Use Status: Never used Tobacco Smoked in Last 30 Days: No Use of substances other than those prescribed or required for medical reasons: No Advance Directives: Yes Advance Directives Information Provided: Yes Advance Directives on File: No Patient : No Physical Exam ED Vital Signs: Vital Signs - 24 hr 01/17/24 12:31 01/17/24 14:40 Temperature 97.7 F 99.1 F Pulse Rate 75 84 Respiratory Rate 16 16 Blood Pressure 130/107 H 134/83 Pulse Oximetry 100 100 Oxygen Delivery Method Room Air Room Air BMI result Body Mass Index 21.5 Const General: cooperative, no acute distress, alert and awake Nutritional Appearance: well nourished Orientation/consciousness: patient oriented x3 Limitations: no limitations HENMT Head: Yes normal to inspection and Yes atraumatic Ears: hearing grossly normal bilaterally and external ears normal General nose exam: Normal external nose present, no nasal discharge noted and no epistaxis Face and sinus: Yes normal facial exam, No abrasion and No laceration Mouth: Normal oral and palatal mucosa present, no drooling and no muffled voice Eyes General: appearance normal, both eyes and all related structures Periorbital: periorbital findings normal Eyelids: Yes eyelids normal Conjunctivae: conjunctivae normal Pupils: Equal, round and reactive pupils present EOM: EOMs intact bilaterally Neck Neck: Yes normal visual inspection, Yes full ROM and Yes no lymphadenopathy Chest Chest palpation & inspection: normal inspection of the chest Resp Effort & Inspection: normal respiratory effort and able to speak in complete sentences GI Inspection: Yes normal to inspection Neuro General: patient oriented x3 and moves all extremities Cranial nerves: Yes Equal, round and reactive pupils present Cognition (Neuro): normal cognition Extrem General: Yes normal to inspection, Yes full ROM and Yes capillary refill normal Psych Appearance: grossly normal Mental Status: mental status grossly normal Affect: Anxious affect present Attitude: cooperative Thought process: Normal thought process present Thought content: Normal thought content present Insight: Good insight present (Psych) Medications Administered Discontinued Medications Generic Name Dose Route Start Last Admin Trade Name Irma PRN Reason Stop Dose Admin Droperidol 1.25 mg 01/17/24 12:51 01/17/24 13:02 Droperidol 5 Mg/2 Ml Vial IVPUSH 01/17/24 12:52 1.25 mg ONCE ONE Administration Sodium Chloride 1,000 mls @ 999 mls/hr 01/17/24 13:00 01/17/24 14:05 Ns IV 01/17/24 14:00 Infused .Q1H1M MIL Infusion Potassium Chloride 40 meq 01/17/24 13:51 01/17/24 14:07 Potassium Chloride Packet 20 Meq Packet PO 01/17/24 13:52 40 meq ONCE ONE Administration Medical Decision Making Medical Decision Making [facility] Narrative: Patient is a 58 year old assigned female at with a history of anxiety presenting to the emergency department today with nausea and increased anxiety. Patient's physical exam was unremarkable. Patient's blood work showed a mild hypokalemia. Patient's urine showed no acute process. I explained my physical exam findings as well as all test results to the patient and the patient's daughter. I answered all questions asked by the patient and the patient's daughter. Patient received IV fluids and droperidol which she stated helped her symptoms. I stressed the importance of the patient taking her medication as directed (either prescribed or as the over the counter packaging recommends). I stressed the importance of the patient following up with her primary care provider and her psychiatrist. I stressed the importance of the patient returning to the emergency department immediately if her symptoms were to worsen or if she were to develop any dizziness, shortness of breath, difficulty breathing, chest pain, blurry vision, loss of vision, nausea, vomiting, abdominal pain, fever, chills, back pain, or any other complaints. Patient and the patient's daughter verbalized agreement and understanding with this treatment plan and discharge. Differential Diagnosis Differential Diagnoses: The differential diagnosis associated with the presentation includes Anxiety Nausea Admission/Observation Consideration of admission/observation: Escalation of care including admission/observation considered Patient would have been admitted to the hospital had her work up had any findings where hospital admission was appropriate and her clinical presentation warranted hospital admission. Lab Data [facility] Lab Attestation statement: I reviewed the patient's lab results. My interpretation of these results are in the [facility] Rationale portion of this note. 01/17/24 13:29 01/17/24 13:29 Labs: Lab Results 01/17/24 01/17/24 01/17/24 Range/Units 13:28 13:29 13:43 WBC 6.8 (4.8-10.8) X10*3/uL RBC 4.43 (4.20-5.50) X10*6/uL Hgb 13.5 (12.0-16.0) g/dl Hct 39.6 (37.0-47.0) % MCV 89.4 (80.0-98.0) fL MCH 30.5 (27.0-33.0) pg MCHC 34.1 (31.0-35.0) g/dl RDW 12.6 (11.0-16.0) % Plt Count 180 (160-400) X10*3/uL MPV 10.5 (9.4-12.3) fL Immature Gran % (Auto) 0.7 H (0.0-0.4) % Neut % (Auto) 80.7 H (45-73) % Lymph % (Auto) 12.1 L (20-40) % Winston % (Auto) 5.6 (2-11) % Eos % (Auto) 0.3 (0-4) % Baso % (Auto) 0.6 (0-2) % Lymph # (Auto) 0.8 L (1.2-4.9) X10*3/uL Winston # (Auto) 0.4 (0.1-1.2) X10*3/uL Eos # (Auto) 0.0 (0.0-0.4) X10*3/uL Baso # (Auto) 0.0 (0.0-0.2) X10*3/uL Abs Immat Gran (auto) 0.05 H (0.00-0.03) X10*3/uL Absolute Neuts (auto) 5.5 (2.0-8.3) x10*3/uL Absolute Nucleated RBC 0.000 (0.0-0.012) X10*3/uL Nucleated RBC % (auto) 0.0 (0.0-0.2) /100WBC Sodium 141 (135-145) mmol/L Potassium 3.0 L D (3.3-5.1) mmol/L Chloride 108 (96-108) mmol/L Carbon Dioxide 25 (22-29) mmol/L Anion Gap 11 L (12-20) BUN 8 L (9-16) mg/dL Creatinine 0.81 (0.5-1.4) mg/dL Estim Creat Clear Calc 53.6 Estimated GFR > 60 Random Glucose 107 (60-115) mg/dL Calcium 8.9 (8.4-10.2) mg/dL Total Bilirubin 0.4 (0.0-1.0) mg/dL AST 25 (5-31) U/L ALT 18 (0-31) U/L Alkaline Phosphatase 53 (39-117) U/L Total Protein 6.4 L (6.5-8.0) g/dL Albumin 4.2 (3.5-5.0) g/dL Lipase 28 (8-78) U/L Urine Color Yellow Urine Appearance Clear Urine pH 8.5 (5.0-9.0) Ur Specific [place] 1.010 (1.005-1.025) Urine Protein Negative (Neg-Trace) mg/dL Urine Glucose (UA) Negative (Negative) mg/dL Urine Ketones Negative (Negative) mg/dL Urine Blood Negative (Negative) Urine Nitrite Negative (Negative) Ur Leukocyte Esterase Negative (Negative) Influenza Type A (PCR) NEGATIVE (Negative) Influenza Type B (PCR) NEGATIVE (Negative) RSV RNA Qual (PCR) NEGATIVE (Negative) SARS-CoV-2 RNA (RT-PCR) NEGATIVE (Negative) Independent Historian Clinical information obtained from an independent historian. History obtained from or confirmed by: EMS (EMS provided additional history and confirmed the history provided by the patient) and Other (patient's daughter provided additional history and confirmed the history provided by the patient) Discharge Plan Discharge Clinical Impression: Anxiety, Hypokalemia Patient Disposition: Home, Self-Care Instructions: Potassium Content of Foods List (ED), Hypokalemia (ED), Anxiety (ED) Additional Instructions: Follow up with your primary care provider. Return to the emergency department immediately if your symptoms worsen or if you develop any dizziness, shortness of breath, difficulty breathing, chest pain, blurry vision, loss of vision, nausea, vomiting, abdominal pain, fever, chills, back pain, or any other complaints. Prescriptions: No Action metoclopramide HCl [Reglan] 10 mg tablet 5 mg PO Q6H PRN (Reason: nausea and vomiting) Qty: 10 0RF acetaminophen [Tylenol] 325 mg Tablet 325 mg PO QID PRN (Reason: Pain) famotidine 20 mg Tablet 20 mg PO BEDTIME lorazepam 0.5 mg Tablet 0.5 mg PO DAILY PRN (Reason: Anxiety) magnesium 250 mg Tablet 250 mg PO DAILY [place] 3 Fish Oil 684-1,200 mg Capsule,Delayed Release(Dr/Ec) 1 cap PO DAILY metoclopramide HCl [Reglan] 10 mg tablet 10 mg PO Q6H PRN (Reason: nausea and vomiting) Qty: 10 0RF Referrals: Indu May NP [Primary Care Provider] - Interventions: ED Discharge Assessment Last Done: 01/17/24 14:40 Discharge Date/Time: 01/17/24 14:41 Print Language: Mongolian
[2024-01-17] MEDS: droPERidol 5 MG/2 ML VIAL 1.25 MG IVPUSH (13:02)
[2024-01-17] MEDS: 0.9 % Sodium Chloride 1,000 ML 999 ML IV (13:02)
--- NOTE | 2024-01-17 13:16 | MHC.EDTECH ---
unable to perform venipuncture at this time. Patient states she is too anxious at this time. RHONDA shields.
[2024-01-17 13:32] LABS: MANUAL DIFF FLAG NO
[2024-01-17 13:39] LABS: Basophils Percent Auto 0.6 % (0-2); Eosinophils Percent Auto 0.3 % (0-4); Hematocrit 39.6 % (37.0-47.0); Hemoglobin 13.5 g/dl (12.0-16.0); Imm Gran Abs Auto 0.05 X10*3/uL (0.00-0.03); Imm Gran Pct Auto 0.7 % (0.0-0.4); Lymphocytes Absolute Auto 0.8 X10*3/uL (1.2-4.9); Lymphocytes Percent Auto 12.1 % (20-40); Mean Corpuscular HGB Conc 34.1 g/dl (31.0-35.0); Mean Corpuscular Hemoglobin 30.5 pg (27.0-33.0); Mean Corpuscular Volume 89.4 fL (80.0-98.0); Mean Platelet Volume 10.5 fL (9.4-12.3); Monocytes Absolute Auto 0.4 X10*3/uL (0.1-1.2); Monocytes Percent Auto 5.6 % (2-11); Neutrophils Absolute Auto 5.5 x10*3/uL (2.0-8.3); Neutrophils Percent Auto 80.7 % (45-73); Platelet Count 180 X10*3/uL (160-400); Red Blood Count 4.43 X10*6/uL (4.20-5.50); Red Cell Distribution Width 12.6 % (11.0-16.0); White Blood Count 6.8 X10*3/uL (4.8-10.8)
[2024-01-17 13:48] LABS: Alanine Aminotransferase 18 U/L (0-31); Albumin Level 4.2 g/dL (3.5-5.0); Alkaline Phosphatase 53 U/L (39-117); Anion Gap 11 (12-20); Aspartate Amino Transferase 25 U/L (5-31); Bilirubin Total 0.4 mg/dL (0.0-1.0); Blood Urea Nitrogen 8 mg/dL (9-16); Calcium 8.9 mg/dL (8.4-10.2); Carbon Dioxide 25 mmol/L (22-29); Chloride 108 mmol/L (96-108); Creatinine Clr Calc Pharmacy 53.6; Estimated Glomerular Filt Rate > 60; Glucose Random 107 mg/dL (60-115); Lipase 28 U/L (8-78); Sodium 141 mmol/L (135-145); Total Protein 6.4 g/dL (6.5-8.0)
[2024-01-17 13:50] LABS: Appearance Urine Clear; Color Urine Yellow; Glucose Urine UA Negative (Negative); Leukocyte Esterase Urine Negative (Negative); Nitrite Urine Negative (Negative); PH 8.5 (5.0-9.0); Urine Blood Negative (Negative); Urine Ketones Negative (Negative); Urine Protein Negative (Neg-Trace)
[2024-01-17] MEDS: Potassium Chloride Packet 20 MEQ PACKET 40 MEQ PO (14:07)
[2024-01-17 14:22] LABS: Influenza A PCR NEGATIVE (Negative); Influenza B PCR NEGATIVE (Negative); Resp Syncy Virus RNA Qual PCR NEGATIVE (Negative); SARS COV2 PCR INHOUSE NEGATIVE (Negative)
[2024-01-17 14:40] VITALS: BP 134/83; PULSE 84; RESP 16; TEMP 37.3; O2SAT 100
== END 2024-01-17 14:41 | disposition home or self-care (01) ==
PROVIDERS: Physician Assistant Medical; Emergency Provider Emergency Medicine; PCP Nurse Practitioner Family
DX: E87.6 Hypokalemia (principal); F41.9 Anxiety disorder, unspecified; R11.0 Nausea; Z03.818 Encounter for observation for suspected exposure to other biological agents ruled out
CPT/HCPCS: 0241U; 36415; 80053; 81003; 83690; 85025; 96361; 96374; 99284; J1790

== ENCOUNTER 2024-08-19 04:29 | Emergency (ER) | payer OTHER, SELFPAY ==
[2024-08-19 04:37] VITALS: BP 153/65; PULSE 70; O2SAT 97
[2024-08-19 04:40] VITALS: BP 130/76; PULSE 79; RESP 22; TEMP 36.7; O2SAT 100; BMI 19.2
--- OUTSIDE RECORDS SUMMARY | 2024-08-19 05:19 | XMS_ITS | Data Portability ---
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 Plan of Treatment Reminders Order Date Submit Date Provider Last Modified By Organization Details Last Modified Time Details Appointments None recorde d. Lab None recorde d. Referral None recorde d. Procedures None recorde d. Surgeries None recorde d. Imaging XR, knee, 4 or more view - room 210. right knee. 4v cw. 024 11/23/19 24 [email or web address] [address], [address], [place], [address], 4 16:24:59 Medication Orders None recorde d. Patient TargetsNo targets recorded. Patient InstructionsNo instructions recorded. Reason for Referral None Reported. Problems Name Problem SNOMED Code Status Onset Date Resolution Date Notes Provider Name and Address Organization Details Recorded Time Pain of right knee joint 2005420355726 00 Active 2023 sebasitan christianson [facility] 4 15:06:10 Osteoarthri tis of right knee joint 7585505120574 00 Active 2023 sebastian christianson [facility] 4 16:05:32 Problem Notes None recorded. Procedures Surgical History Date Name Laterality Status Provider Name and Address Organization Details Recorded Time 11/23/2023 Sports Knee 4&1 completed Nancy Vicente PA-C [address], [place], [address], [facility] 11/23/2023 23:02:25 Imaging Results None recorded. Procedure Notes None recorded. Medical Equipment None Reported. Allergies Allergen ID Allergen Name Allergen Category Reaction Reaction Severity Criticality Documentation Date Start Date Code Code System Note Provider Name and Address Organization Details Recorded Time 810030 amitripty line medicatio n Not available Not available Not available 11/23/2023 704 [facility], [facility] 4 15:06:40 915620 sumatript an medicatio n Not available Not available Not available 11/23/2023 68509 [facility], [facility] 4 15:06:48 459729 Prilosec medicatio n Not available Not available Not available 11/23/2023 13233 5 [facility], [facility] 4 15:06:56 136447 sucralfat e medicatio n Not available Not available Not available 11/23/2023 81253 Rx[facility], [facility] 4 15:07:05 281340 hydrocort isone / pramoxine medicatio n Not available Not available Not available 11/23/2023 14437 5 [facility], [facility] 4 15:07:16 888835 bupropion Not available Not available Not available Not available 11/23/2023 64919 [facility], [facility] 4 15:07:29 033928 Valtrex medicatio n Not available Not available Not available 11/23/2023 37161 0 [facility], [facility] 4 15:07:36 130581 ibuprofen medicatio n Not available Not available Not available 11/23/2023 5640 RxNorm 800mg [facility], [facility] 4 15:07:54 352451 Hibiclens medicatio n Not available Not available Not available 11/23/2023 10655 2 [facility], [facility] 4 15:08:03 302184 cortisone medicatio n [place] Not available Not available 11/25/2023 2878 RxNorm AIDAN christianson [place] [facility] 4 12:13:42 Medications Name Sig Start Date Stop Date Status Note LastModified by Organization Details LastModified Time riboflavin (vitamin B2) 100 mg tablet Take by oral route. active Not Available Not Available No t Available famotidine 20 mg tablet Take 1 tablet twice a day by oral route. active Not Available Not Available No t Available lorazepam 0.5 mg tablet Take 2 tablets 3 times a day by oral route. active NEEDED Not Available Not Available Not Available metocloprami de 10 mg tablet TAKE 1 TABLET (10 MG) ORALLY EVERY 6 HOURS NEEDED FOR NAUSEA AND VOMITING active Not Available Not Available No t Available magnesium 250 mg (as magnesium oxide) tablet Take by oral route. active Not Available Not Available No t Available multivitamin active Not Available Not Available Not Available Probiotic active Not Available Not Britni ilable Not Available omega 3 1,000 mg-dha 250 mg-epa 750 mg/5 mL oral liquid Take by oral route. active Not Available Not Available No t Available Vitals None Recorded Social History None recorded. Functional Status None recorded. Mental Status None recorded. Family History Nothing Reported. Medical History No medical history recorded. Gynecological HistoryNo gynecological history recorded. Obstetrics History GPAL:G 0 P 0 0 0 0 Past Encounters Encounter ID Performer Location Encounter Start Date Encounter Closed Date Diagnosis/Indication Diagnosis SNOMED-CT Code Diagnosis ICD10 Code Diagnosis Note [id number] JOSE Echever[facility] [address] [place] [address] 11/23/2023 14:41:10 12/14/2023 13:12:19 Pain of right knee joint 7004448157 44856 M25.561 Osteoarthr itis of right knee joint 0273089251 74986 M17.11 Health Concerns Section Related Observation LastModified by Organization Detai ls LastModified Time None Recorded Concern Status LastModified by Organization Details LastModified Time None Recorded Advance Directives Directive None Recorded Payers Encounter Date Sequence Insurance Name Policy Number Policy Day Covered Member ID Day Member ID Guarantor Name 11/23/2023 [employer] [facility] [place] [facility] Elza Sierra [id number] Elza Sierra Notes Date Note Type Note Provider Name and Address Organization Details Recorded Time 11/23/2023 text/html I am seeing the patient today under the supervision of Dr. Whalen who was available but who did not see the patient. HPI: Elza presents to the office today for an evaluation of her right knee. She admits to anterior medial knee pain which began recently without a precipitating event. No recent trauma. She suffers from fibromyalgia as well. She has been participating in physical therapy with slight improvement. Her primary care physician also ordered a right knee MRI which did not reveal an internal derangement. She will take [id number] medication intermittently for her pain. She at times feels as if the knee is unstable, but denies catching and locking. Her symptoms are most significant with climbing stairs. She is here today for treatment recommendations. PMH/PSH/MEDS/ALL/FMH/ SOC HX/ROS are reviewed in detail per my medical intake sheet. General Exam: Vital signs are as noted below Mental status: Alert and lucid. Normal insight, affect and grooming. 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 No spasticity or clonus noted. EXAMINATION: The patient is well appearing and in no apparent distress. Alert and oriented x3. Gait is symmetric. {{Right* Left}} knee reveals {{varus valgus no*}} deformity upon inspection. No joint effusion, edema, erythema, ecchymosis, or lesions. Neurovascularly intact. Tenderness present along the {{medial* lateral med ial and lateral}} joint line. ROM is from 0-140 degrees. {{Crepitus No crepitus*}} noted. Stability intact with anterior, posterior, and varus/valgus stress at both 0 and 30 degrees of flexion. Flexion pinch is mildly positive. 5/5 strength. Calf/leg compartments soft and compressible. X-rays ordered, obtained and reviewed at [facility] today include an AP standing, Dewey, and merchant view of bilateral knees. Lateral view of right knee. Images reveal mild degeneration in the medial and patellofemoral compartments. There is a slight lateral patella tilt bilaterally. No evidence for any acute fracture or lesion. Recent MRI performed of the right knee at [facility] has been independently reviewed. Images reveal some degeneration of the medial meniscus, but no tear. Mild degenerative changes are present in the medial and patellofemoral compartments. IMPRESSION: Right knee osteoarthritis and patellofemoral syndrome PLAN: The patient was thoroughly counseled today regarding their knee condition, its natural history, and conservative versus surgical treatment options. The patient is interested in receiving an injection with corticosteroid. {{The right knee was* The left knee was Bilateral knees were}} prepped sterilely and an injection was administered utilizing 40mg of Kenalog and 4cc of 0.25% Marcaine. The patient tolerated the procedure well. Post-injection precautions were discussed. Recommended avoiding strenuous activity over the next 24-48 hours. Encouraged elevation of the leg, applying ice, and taking over the counter medication as needed. The patient is aware that the injection can be repeated as often as every 3 months. A prescription for hinged knee brace has been given. She is already participating in physical therapy and may continue. I will see her back in the office in 6 weeks for recheck. All questions answered. The patient is ambulatory, but has weakness and/or instability of their extremity which requires stabilization from this semi-rigid/rigid orthosis to improve their function. Verbal and written instructions for the use and application of this item were given. Patient was instructed that should the brace result in increased pain, decreased sensation, increased swelling or an overall worsening of their medical condition, to please contact our office immediately. Nancy Vicente PA-C [address], [place], [address], [facility] 11/23/2023 23:10:19 OBGyn Episode No OBEpisode recorded.
--- NOTE | 2024-08-19 05:43 | ED_ITS ---
HPI - Anxiety General Chief Complaint: Anxiety Stated Complaint: panic attack Time Seen by Provider: 08/19/24 05:43 Source: patient Mode of arrival: ambulatory Limitations: no limitations History of Present Illness ED Provider: HPI narrative: Patient with anxiety PTSD comes here for panic attack shaking and tearful denied any suicidal ideation patient does get similar episode in the past attack nauseated trying to throw up complaining of epigastric pain , patient has status post cholecystectomy Related Data Home Medications ?Medication ?Instructions ?Recorded ?Confirmed acetaminophen 325 mg tablet 325 mg PO QID PRN Pain 11/04/21 11/04/21 (Tylenol) famotidine 20 mg tablet 20 mg PO BEDTIME 11/04/21 11/04/21 lorazepam 0.5 mg tablet 0.5 mg PO DAILY PRN Anxiety 11/04/21 11/04/21 magnesium 250 mg tablet 250 mg PO DAILY 11/04/21 11/04/21 omega-3 fatty acids-fish oil 684 1 cap PO DAILY 11/04/21 11/04/21 mg-1,200 mg capsule,delayed release Previous Rx's ?Medication ?Instructions ?Recorded metoclopramide HCl 10 mg tablet 5 mg (1/2 x 10 mg) PO Q6H PRN 11/04/21 (Reglan) nausea and vomiting #10 tabs metoclopramide HCl 10 mg tablet 10 mg PO Q6H PRN nausea and 08/16/23 (Reglan) vomiting #10 tabs Allergies Allergy/AdvReac Type Severity Reaction Status Date / Time azithromycin [AZITHROMYCIN] Allergy Unknown UNKNOWN Verified 08/19/24 04:56 bupropion [BUPROPION] Allergy Unknown UNKNOWN Verified 08/19/24 04:56 gluten [GLUTEN] Allergy Unknown UNKNOWN Verified 08/19/24 04:56 ibuprofen [IBUPROFEN] Allergy Unknown UNKNOWN Verified 08/19/24 04:56 omeprazole [From PRILOSEC] Allergy Unknown UNKNOWN Verified 08/19/24 04:56 soy [SOY] Allergy Unknown UNKNOWN Verified 08/19/24 04:56 sumatriptan [SUMATRIPTAN] Allergy Unknown UNKNOWN Verified 08/19/24 04:56 valacyclovir [From VALTREX] Allergy Unknown UNKNOWN Verified 08/19/24 04:56 amitriptyline Allergy Unknown Verified 08/19/24 04:56 chlorhexidine Allergy Hives Verified 08/19/24 04:56 [From Hibiclens] ondansetron [From Zofran] Allergy Unknown Verified 08/19/24 04:56 propofol Allergy Unknown Verified 08/19/24 04:56 sucralfate Allergy Dizziness Verified 08/19/24 04:56 nut - unspecified AdvReac Unknown UNKNOWN Verified 08/19/24 04:56 [NUT - UNSPECIFIED] metoclopramide [From Reglan] AdvReac Redness of Verified 08/19/24 04:56 Skin DAIRY PRODUCTS Allergy Unknown HEADACHE Uncoded 08/19/24 04:56 SSRI Allergy Unknown UNKNOWN Uncoded 08/19/24 04:56 Review of Systems Review of Systems: Yes all other systems are reviewed and are negative PMFSH Past Medical History Medical History Anxiety PTSD (post-traumatic stress disorder) Surgical History S/P cholecystectomy Social History Social History Alcohol intake: never Patient Tobacco Use Status: Never used Tobacco Smoked in Last 30 Days: No Use of substances other than those prescribed or required for medical reasons: No Advance Directives: Yes Advance Directives on File: No Physical Exam Vital Signs: Vital Signs: Last Vital Signs Temp 98.1 F 08/19/24 04:40 Pulse 79 08/19/24 04:40 Resp 22 H 08/19/24 04:40 BP 130/76 08/19/24 04:40 Pulse Ox 100 08/19/24 04:40 O2 Del Method Room Air 08/19/24 04:40 BMI result Body Mass Index 19.2 Appearance: Alert. Oriented X3. No acute distress. Anxious Eyes: No pallor or icterus ENT: Pharynx normal. Oral Mucosa moist Neck: Normal inspection. Neck supple. CVS: Normal heart rate and rhythm. Pulses normal. Respiratory: No respiratory distress. Equal air entry bilateral, no wheezing/rales/rhonchi Abdomen: Soft and nontender. Bowel sounds are present, Skin: Skin warm and dry. Normal skin color. Normal skin turgor. Extremities: No lower extremity edema. No calf tenderness Neuro: Oriented X 3. No motor deficit. Medications Administered Discontinued Medications Generic Name Dose Route Start Last Admin Trade Name Freq PRN Reason Stop Dose Admin Al Hydroxide/Mg Hydroxide 30 ml 08/19/24 05:43 08/19/24 05:56 Magnesium Hydrox/Alum Hydrox 30 Ml Oral.Susp PO 08/19/24 05:44 30 ml ONCE ONE Administration Lorazepam 0.5 mg 08/19/24 05:43 08/19/24 05:56 Lorazepam 0.5 Mg Tablet PO 08/19/24 05:44 0.5 mg ONCE ONE Administration Medical Decision Making Medical Decision Making [facility] Narrative: Patient's anxiety disorder does have with therapist to follow denies any significant depression or suicidal ideation responded to p.o. Ativan but still feels anxious will watch for some more time disposition according to her state Dr. Ryan will follow Discharge Plan Discharge Clinical Impression: Acute anxiety Patient Disposition: Still a Patient Prescriptions: No Action metoclopramide HCl [Reglan] 10 mg tablet 5 mg PO Q6H PRN (Reason: nausea and vomiting) Qty: 10 0RF acetaminophen [Tylenol] 325 mg Tablet 325 mg PO QID PRN (Reason: Pain) famotidine 20 mg Tablet 20 mg PO BEDTIME lorazepam 0.5 mg Tablet 0.5 mg PO DAILY PRN (Reason: Anxiety) magnesium 250 mg Tablet 250 mg PO DAILY [place] 3 Fish Oil 684-1,200 mg Capsule,Delayed Release(Dr/Ec) 1 cap PO DAILY metoclopramide HCl [Reglan] 10 mg tablet 10 mg PO Q6H PRN (Reason: nausea and vomiting) Qty: 10 0RF Print Language: Lao
[2024-08-19] MEDS: LORazepam 0.5 MG TABLET PO (05:56)
[2024-08-19] MEDS: Magnesium Hydrox/Alum Hydrox 30 ML ORAL.SUSP PO (05:56)
[2024-08-19 08:01] VITALS: BP 145/88; PULSE 80; RESP 19; TEMP 36.6; O2SAT 99
[2024-08-19 09:14] VITALS: BP 138/85; PULSE 86; RESP 16; TEMP 36.6; O2SAT 100
== END 2024-08-19 09:16 | disposition home or self-care (01) ==
PROVIDERS: Emergency Provider Emergency Medicine Emergency Medical Services; PCP Family Medicine
DX: F41.9 Anxiety disorder, unspecified (principal); F41.0 Panic disorder [episodic paroxysmal anxiety]; R11.2 Nausea with vomiting, unspecified; Z79.899 Other long term (current) drug therapy
CPT/HCPCS: 99284

== ENCOUNTER 2024-11-23 00:15 | Emergency (ER) | payer OTHER, SELFPAY ==
--- NOTE | ~2024-11-23 | XR_ITS ---
CLINICAL HISTORY: epigastric pain 1 view chest x-ray Comparison: None available Findings: No consolidation, pneumothorax, or pleural effusion. Heart size is normal. Degenerative changes include imaged left AC joints. IMPRESSION: No consolidation. This document has been electronically signed by: Juancho Parikh MD on 11/23/2024 02:37:39
[2024-11-23 00:33] VITALS: BP 136/68; BP 142/100; PULSE 100; PULSE 79; RESP 20; TEMP 36.1; O2SAT 100; BMI 20.1
--- NOTE | 2024-11-23 00:55 | ED_ITS ---
HPI - General Adult General Chief complaint: Anxiety Stated complaint: BP issues Time Seen by Provider: 11/23/24 00:55 Source: patient and EMS Mode of arrival: EMS Limitations: no limitations History of Present Illness ED Provider: DR. Wyatt HPI narrative: 59-year-old female history of anxiety on lorazepam, had panic attack last night and worry about getting another panic attack tonight, patient was checking blood pressure at home and found to be higher than her baseline 140s /90s, no CP, no SOB, no dizziness, no headache, no blurry vision or double vision. No SI, no HI, no hallucination. Patient is complaining of her chronic epigastric pain that is scheduled by her PCP to see a windows and doors installer for, no nausea, vomiting, no diarrhea. Related Data Home Medications ?Medication ?Instructions ?Recorded ?Confirmed acetaminophen 325 mg tablet 325 mg PO QID PRN Pain 11/04/21 11/04/21 (Tylenol) famotidine 20 mg tablet 20 mg PO BEDTIME 11/04/21 11/04/21 lorazepam 0.5 mg tablet 0.5 mg PO DAILY PRN Anxiety 11/04/21 11/04/21 magnesium 250 mg tablet 250 mg PO DAILY 11/04/21 11/04/21 omega-3 fatty acids-fish oil 684 1 cap PO DAILY 11/04/21 11/04/21 mg-1,200 mg capsule,delayed release Previous Rx's ?Medication ?Instructions ?Recorded metoclopramide HCl 10 mg tablet 5 mg (1/2 x 10 mg) PO Q6H PRN 11/04/21 (Reglan) nausea and vomiting #10 tabs metoclopramide HCl 10 mg tablet 10 mg PO Q6H PRN nausea and 08/16/23 (Reglan) vomiting #10 tabs hydroxyzine HCl 10 mg tablet 10 mg PO TID PRN anxiety #14 tabs 11/23/24 Allergies Allergy/AdvReac Type Severity Reaction Status Date / Time azithromycin [AZITHROMYCIN] Allergy Unknown UNKNOWN Verified 11/23/24 00:36 bupropion [BUPROPION] Allergy Unknown UNKNOWN Verified 11/23/24 00:36 gluten [GLUTEN] Allergy Unknown UNKNOWN Verified 11/23/24 00:36 ibuprofen [IBUPROFEN] Allergy Unknown UNKNOWN Verified 11/23/24 00:36 omeprazole [From PRILOSEC] Allergy Unknown UNKNOWN Verified 11/23/24 00:36 soy [SOY] Allergy Unknown UNKNOWN Verified 11/23/24 00:36 sumatriptan [SUMATRIPTAN] Allergy Unknown UNKNOWN Verified 11/23/24 00:36 valacyclovir [From VALTREX] Allergy Unknown UNKNOWN Verified 11/23/24 00:36 amitriptyline Allergy Unknown Verified 11/23/24 00:36 chlorhexidine Allergy Hives Verified 11/23/24 00:36 [From Hibiclens] ondansetron [From Zofran] Allergy Unknown Verified 11/23/24 00:36 propofol Allergy Unknown Verified 11/23/24 00:36 sucralfate Allergy Dizziness Verified 11/23/24 00:36 nut - unspecified AdvReac Unknown UNKNOWN Verified 11/23/24 00:36 [NUT - UNSPECIFIED] metoclopramide [From Reglan] AdvReac Redness of Verified 11/23/24 00:36 Skin DAIRY PRODUCTS Allergy Unknown HEADACHE Uncoded 11/23/24 00:36 SSRI Allergy Unknown UNKNOWN Uncoded 11/23/24 00:36 Review of Systems Review of Systems: All other systems are reviewed and are negative Constitutional: Reports as per HPI and Reports no additional constitutional complaints Eyes: Reports as per HPI and Reports no additional eye complaints Reports system reviewed and no additional complaints, except as documented Cardiovascular: Reports as per HPI and Reports no additional cardiovascular complaints Respiratory: Reports as per HPI and Reports no additional respiratory complaints Gastrointestinal: Reports as per HPI and Reports no additional gastrointestinal complaints Genitourinary: Reports no additional female genitourinary complaints Musculoskeletal: Reports no additional musculoskeletal complaints Skin/Breast: Reports system reviewed and no additional complaints, except as docu Psychiatric: Reports no additional psychiatric complaints Endocrine: Reports no additional endocrine complaints Hematologic/Lymphatic: Reports no additional hematologic/lymphatic complaints Allergic/Immunologic: Reports no additional allergic/immunologic complaints Reports system reviewed and no additional complaints, except as documented and Reports Abnormal speech present COUNT INCLUDES [facility] Past Medical History Medical History Anxiety PTSD (post-traumatic stress disorder) Surgical History S/P cholecystectomy Social History Social History Alcohol intake: never Patient Tobacco Use Status: Never used Tobacco Advance Directives: No Advance Directives Information Provided: Yes Physical Exam ED Vital Signs: Vital Signs - 24 hr 11/23/24 00:33 Temperature 97 F Pulse Rate 79 Respiratory Rate 20 Blood Pressure 136/68 Pulse Oximetry 100 Oxygen Delivery Method Room Air BMI result Body Mass Index 20.1 Vital signs have been reviewed and appear to be correct. Blood pressure elevated. Heart rate normal. Respiratory rate normal. Temperature normal. Oxygen saturation normal. Appearance: Anxious, Alert. Oriented X3. No acute distress. Head: Normal external exam. Normocephalic. Atraumatic. No Aguilar signs noted. No raccoon eyes noted Eyes: PERRLA. EOMI. Conjunctiva and sclera normal. Eyelids normal. ENT: TM's Normal. Pharynx normal. Uvula midline. Moist mucous membranes. No trismus noted. No drooling noted. No muffled voice noted. Neck: Normal inspection. Neck supple. FROM. No adenopathy. Thyroid Normal. No meningeal signs. No neck mass noted. CVS: Normal heart rate and rhythm. Heart sound normal. No murmurs noted. Pulses normal throughout. Respiratory: No respiratory distress. Painless inspiration. Breath sounds normal. No wheezes/rales/rhonchi noted. Chest nontender. No accessory muscle usage noted or decreased air movement noted. Abdomen: Soft and nontender. Bowel sounds normal in all 4 quadrants. No distention noted. No organomegaly noted. No visible injury noted. Back: No CVA tenderness. Full range of motion noted. Skin: Skin warm and dry. Normal skin color. Normal skin turgor. No rashes/lesions/lacerations noted. Extremities: No lower extremity edema. Extremities exhibit normal range of motion. Extremities nontender. Neuro: Oriented X 3. Cranial nerve exam: II-XII are grossly intact No motor deficit. No sensory deficit. Reflexes normal. Course Reevaluation(s) Reevaluation #1: Patient is much calmer after received Valium and hydroxyzine, blood pressure is under better control, no headache, no dizziness, blurry vision, no CP, no abdominal pain. Improvement of epigastric pain after patient received hydroxyzine and Valium. Time: 03:00 Medical Decision Making Differential Diagnosis Differential Diagnoses: The differential diagnosis associated with the presentation includes (ACS, pneumonia, pneumothorax, pleural effusion, electrolyte derangement, severe anemia, anxiety, gastritis, pancreatitis.) Admission/Observation Consideration of admission/observation: Escalation of care including admission/observation considered Lab Data MDM Lab Attestation statement: I reviewed the patient's lab results. Independent Interpretation I performed an independent interpretation of an: Plain X-Ray (Chest: No acute intrathoracic pathology.) Radiology Impression Discussion of test interpretation with radiology: I have reviewed the radiologist's reading. Discharge Plan Discharge Clinical Impression: Anxiety Patient Disposition: Home, Self-Care Instructions: Anxiety (ED) Prescriptions: New hydroxyzine HCl 10 mg tablet 10 mg PO TID PRN (Reason: anxiety) Qty: 14 0RF No Action metoclopramide HCl [Reglan] 10 mg tablet 5 mg PO Q6H PRN (Reason: nausea and vomiting) Qty: 10 0RF acetaminophen [Tylenol] 325 mg Tablet 325 mg PO QID PRN (Reason: Pain) famotidine 20 mg Tablet 20 mg PO BEDTIME lorazepam 0.5 mg Tablet 0.5 mg PO DAILY PRN (Reason: Anxiety) magnesium 250 mg Tablet 250 mg PO DAILY [place] 3 Fish Oil 684-1,200 mg Capsule,Delayed Release(Dr/Ec) 1 cap PO DAILY metoclopramide HCl [Reglan] 10 mg tablet 10 mg PO Q6H PRN (Reason: nausea and vomiting) Qty: 10 0RF Referrals: Ирина Chan MD [Primary Care Provider] - Print Language: Faroese
--- OUTSIDE RECORDS SUMMARY | 2024-11-23 00:57 | XMS_ITS | Data Portability ---
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 4v cw. 024 11/23/19 24 [email or web address] [facility] [address], [place], [address], 4 16:24:59 Medication Orders None recorde d. Patient TargetsNo targets recorded. Patient InstructionsNo instructions recorded. Reason for Referral None Reported. Problems Name Problem SNOMED Code Status Onset Date Resolution Date Notes Provider Name and Address Organization Details Recorded Time Pain of right knee joint 0496456821048 00 Active 2023 sebastian christianson [facility] 4 15:06:10 Osteoarthri tis of right knee joint 4026850148662 00 Active 2023 sebastian christianson [facility] 4 16:05:32 Problem Notes None recorded. Procedures Surgical History Date Name Laterality Status Provider Name and Address Organization Details Recorded Time 11/23/2023 Sports Knee 4&1 completed Nancy Vicente PA-C [address], [place], [address], [facility] 11/23/2023 23:02:25 Imaging Results None recorded. Procedure Notes None recorded. Medical Equipment None Reported. Allergies Allergen ID Allergen Name Allergen Category Reaction Reaction Severity Criticality Documentation Date Start Date Code Code System Note Provider Name and Address Organization Details Recorded Time 382771 amitripty line medicatio n Not available Not available Not available 11/23/2023 704 [facility], [facility] 4 15:06:40 106856 sumatript an medicatio n Not available Not available Not available 11/23/2023 56623 Rx[facility], [facility] 4 15:06:48 707382 Prilosec medicatio n Not available Not available Not available 11/23/2023 16014 5 Rx[facility], [facility] 4 15:06:56 725169 sucralfat e medicatio n Not available Not available Not available 11/23/2023 54518 RxNorm [facility], [facility] 4 15:07:05 554221 hydrocort isone / pramoxine medicatio n Not available Not available Not available 11/23/2023 72740 5 Rx[facility], [facility] 4 15:07:16 627404 bupropion Not available Not available Not available Not available 11/23/2023 40027 RxNorm [facility], [facility] 4 15:07:29 358454 Valtrex medicatio n Not available Not available Not available 11/23/2023 48869 0 RxNorm [facility], [facility] 4 15:07:36 128968 ibuprofen medicatio n Not available Not available Not available 11/23/2023 5640 RxNorm 800mg [facility], [facility], [facility] 4 15:07:54 463857 Hibiclens medicatio n Not available Not available Not available 11/23/2023 42357 2 Rx[facility], [facility] 4 15:08:03 108998 cortisone medicatio n [place] Not available Not available 11/25/2023 2878 RxNorm AIDAN christianson [place] - [facility] 4 12:13:42 Medications Name [...] SNOMED-CT Code Diagnosis ICD10 Code Diagnosis Note [id number] JOSE Echeverria [address] [place] [address] 11/23/2023 14:41:10 12/14/2023 13:12:19 Pain of right knee joint [id number] 79549 M25.561 Osteoarthr itis of right knee joint [id number] 58549 M17.11 Health Concerns Section Related Observation LastModified by Organization Detai ls LastModified Time None Recorded Concern Status LastModified by Organization Details LastModified Time None Recorded Advance Directives Directive None Recorded Payers Encounter Date Sequence Insurance Name Policy Number Policy Day Covered Member ID Day Member ID Guarantor Name 11/23/2023 [employer] [facility] Elza Sierra [id number] Elza Sierra Notes Date Note Type Note [...] reveal an internal derangement. She will take jyox-[id number]-[id number] medication intermittently for her pain. She at [...] and lucid. Normal insight, affect and grooming. 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 No spasticity [...] compressible. X-rays ordered, obtained and reviewed at [facility] today include an AP standing, Dewey, and merchant view of bilateral knees. Lateral view of right knee. Images reveal mild degeneration in the medial and patellofemoral compartments. There is a slight lateral patella tilt bilaterally. No evidence for any acute fracture or lesion. Recent MRI performed of the right knee at [facility] has been independently reviewed. Images reveal [...] condition, to please contact our office immediately. Nacny Vicente PA-C [address], [place], [address], [facility] [place] 11/23/2023 23:10:19 OBGyn Episode No OBEpisode recorded.
--- NOTE | 2024-11-23 01:07 | ECG_ITS ---
Test Reason : CHEST PAIN Blood Pressure : */* mmHG Vent. Rate : 77 BPM Atrial Rate : 77 BPM P-R Int : 142 ms QRS Dur : 86 ms QT Int : 426 ms P-R-T Axes : 79 39 55 degrees QTcB Int : 482 ms Normal sinus rhythm with sinus arrhythmia Prolonged QT Abnormal ECG When compared with ECG of 04-Nov-2021 08:21, No significant change was found Referred By: Teresa Wyatt Electronically Signed By: SERA LANGE MD
[2024-11-23] MEDS: Famotidine/PF 20 MG/2 ML VIAL IVPUSH (01:19)
[2024-11-23] MEDS: hydrOXYzine HCL 10 MG TABLET PO (01:22)
[2024-11-23 01:37] LABS: MANUAL DIFF FLAG NO
[2024-11-23 01:38] LABS: Eosinophils Absolute Auto 0.1 X10*3/uL (0.0-0.4); Eosinophils Percent Auto 1.7 % (0-4); Hematocrit 37.5 % (37.0-47.0); Hemoglobin 13.3 g/dl (12.0-16.0); Lymphocytes Absolute Auto 1.2 X10*3/uL (1.2-4.9); Lymphocytes Percent Auto 29.8 % (20-40); Mean Corpuscular HGB Conc 35.5 g/dl (31.0-35.0); Mean Corpuscular Hemoglobin 30.2 pg (27.0-33.0); Mean Platelet Volume 10.1 fL (9.4-12.3); Monocytes Absolute Auto 0.4 X10*3/uL (0.1-1.2); Monocytes Percent Auto 9.7 % (2-11); Neutrophils Absolute Auto 2.4 x10*3/uL (2.0-8.3); Neutrophils Percent Auto 57.8 % (45-73); Platelet Count 176 X10*3/uL (160-400); Red Blood Count 4.41 X10*6/uL (4.20-5.50); Red Cell Distribution Width 12.4 % (11.0-16.0); White Blood Count 4.1 X10*3/uL (4.8-10.8)
[2024-11-23 02:06] VITALS: BP 136/91; PULSE 90; RESP 18; TEMP 36.1; O2SAT 100
[2024-11-23 02:07] LABS: Troponin-I High Sensitivity < 2.7 ng/L (<3.5-17.0)
[2024-11-23 02:10] LABS: Alanine Aminotransferase 21 U/L (0-31); Albumin Level 4.3 g/dL (3.5-5.0); Anion Gap 14 (12-20); Aspartate Amino Transferase 28 U/L (5-31); Bilirubin Direct 0.2 mg/dL (0.0-0.5); Bilirubin Total 0.5 mg/dL (0.0-1.0); Blood Urea Nitrogen 16 mg/dL (9-16); Calcium 9.4 mg/dL (8.4-10.2); Carbon Dioxide 25 mmol/L (22-29); Chloride 103 mmol/L (96-108); Creatinine Clr Calc Pharmacy 55.1; Estimated Glomerular Filt Rate > 60; Glucose Random 135 mg/dL (60-115); Lipase 30 U/L (8-78); Potassium 2.9 mmol/L (3.3-5.1); Sodium 139 mmol/L (135-145); Total Protein 6.5 g/dL (6.5-8.0)
--- NOTE | 2024-11-23 02:15 | PC.NURSE ---
verbal order from Dr Wyatt to placed order for potassium 40 meq PO. order placed for patient. patient states she prefers the powder.
[2024-11-23] MEDS: Potassium Chloride Packet 20 MEQ PACKET 40 MEQ PO (02:18)
[2024-11-23 02:21] LABS: Alkaline Phosphatase 50 U/L (39-117)
[2024-11-23 03:16] LABS: Appearance Urine Clear; Color Urine Yellow; Glucose Urine UA Negative (Negative); Leukocyte Esterase Urine Negative (Negative); Nitrite Urine Negative (Negative); PH 7.5 (5.0-9.0); Specific Gravity - Urine <= 1.005 (1.005-1.025); UMIC TRIGGER UACC YES; Urine Blood Trace (Negative); Urine Ketones Negative (Negative); Urine Protein Negative (Neg-Trace)
[2024-11-23 03:21] LABS: Bacteria Urine None Seen (None Seen); Hyaline Casts Urine 0-2 /LPF (0-2); RBC Urine 0-2 /HPF (0-2); Squamous Epithelial Cell Urine 0-2 /HPF (0-2); WBC Urine 0-5 /HPF (0-5)
[2024-11-23] MEDS: diazePAM 2 MG TABLET PO (03:25)
[2024-11-23 05:52] VITALS: BP 108/65; PULSE 67; RESP 16; TEMP 36.1; O2SAT 97
== END 2024-11-23 06:12 | disposition home or self-care (01) ==
PROVIDERS: Emergency Provider Emergency Medicine; PCP Family Medicine
DX: F41.9 Anxiety disorder, unspecified (principal); F41.0 Panic disorder [episodic paroxysmal anxiety]; R07.89 Other chest pain; R10.13 Epigastric pain; R11.2 Nausea with vomiting, unspecified; Z79.899 Other long term (current) drug therapy
CPT/HCPCS: 36415; 71045; 80048; 80076; 81001; 83690; 84484; 85025; 93005; 96374; 99284; J1308

== ENCOUNTER → 2024-11-23 01:07 | Outpatient (BNV) | payer OTHER, SELFPAY | PROVIDERS: Emergency Provider Emergency Medicine; PCP Family Medicine; Visit Provider Internal Medicine Cardiovascular Disease | DX: I45.81 Long QT syndrome (principal); I49.9 Cardiac arrhythmia, unspecified | CPT/HCPCS: 93010 ==

== ENCOUNTER → 2024-11-23 01:08 | Outpatient (BNV) | payer OTHER, SELFPAY | PROVIDERS: Emergency Provider Emergency Medicine; PCP Family Medicine; Visit Provider Radiology Neuroradiology | DX: R10.13 Epigastric pain (principal) | CPT/HCPCS: 71045 ==

== ENCOUNTER 2025-02-26 16:46 | Emergency (ER) | payer OTHER, SELFPAY ==
--- NOTE | 2025-02-26 | ECG_ITS ---
Test Reason : cp Blood Pressure : */* mmHG Vent. Rate : 82 BPM Atrial Rate : 82 BPM P-R Int : 114 ms QRS Dur : 84 ms QT Int : 384 ms P-R-T Axes : 61 41 30 degrees QTcB Int : 448 ms Normal sinus rhythm Normal ECG When compared with ECG of 23-Nov-2024 02:02, No significant change was found Referred By: Generic ED Physician Electronically Signed By: SERA LANGE MD
--- NOTE | ~2025-02-26 | CT_ITS ---
CLINICAL HISTORY: fall, trauma CT head without contrast Comparison: None provided Findings: No intra-axial mass, midline shift, hydrocephalus, or acute hemorrhage. No significant atrophy-like change or white matter disease. There is no sinus or mastoid fluid. The orbits are unremarkable. There is no acute fracture. IMPRESSION: 1. No acute intracranial findings. This document has been electronically signed by: Hoang Madison MD on 02/26/2025 19:09:27
--- NOTE | 2025-02-26 17:28 | ED.GENADULT ---
HPI - General Adult General Chief complaint: Weakness Stated complaint: cp Time Seen by Provider: 02/26/25 22:51 Source: patient Mode of arrival: wheelchair Limitations: no limitations History of Present Illness ED Provider: Dr. Caty Littlejohn HPI narrative: 59-year-old female with a history of anxiety and GERD presenting with substernal chest pressure, generalized weakness and fatigue ongoing for the last several days after increasing her BuSpar dose. Patient admits she has been taking BuSpar since November. Started to increase her dose steadily over the last several weeks and has noticed an increase in chest pressure, dyspepsia, feelings of impending doom. Called her primary care doctor today to ask if she could should continue taking this medication and was told to come to the emergency department for evaluation. Admits to taking lorazepam and hydroxyzine for the discomfort without relief. Does not feel these symptoms resemble her normal anxiety symptoms. She does feel as though her anxiety is improving on the BuSpar though. Denies other symptoms including fever, cough or cold-type symptoms, abdominal pain, vomiting, bowel changes or urinary complaints. Related Data Home Medications ?Medication ?Instructions ?Recorded ?Confirmed acetaminophen 325 mg tablet 325 mg PO QID PRN Pain 11/04/21 11/04/21 (Tylenol) famotidine 20 mg tablet 20 mg PO BEDTIME 11/04/21 11/04/21 lorazepam 0.5 mg tablet 0.5 mg PO DAILY PRN Anxiety 11/04/21 11/04/21 magnesium 250 mg tablet 250 mg PO DAILY 11/04/21 11/04/21 omega-3 fatty acids-fish oil 684 1 cap PO DAILY 11/04/21 11/04/21 mg-1,200 mg capsule,delayed release Previous Rx's ?Medication ?Instructions ?Recorded metoclopramide HCl 10 mg tablet 5 mg (1/2 x 10 mg) PO Q6H PRN 11/04/21 (Reglan) nausea and vomiting #10 tabs metoclopramide HCl 10 mg tablet 10 mg PO Q6H PRN nausea and 08/16/23 (Reglan) vomiting #10 tabs hydroxyzine HCl 10 mg tablet 10 mg PO TID PRN anxiety #14 tabs 11/23/24 potassium chloride 20 mEq 20 meq PO DAILY 30 days #30 tabs 02/27/25 tablet,extended release (K-Tab) Allergies Allergy/AdvReac Type Severity Reaction Status Date / Time azithromycin (AZITHROMYCIN) Allergy Unknown UNKNOWN Verified 02/26/25 17:43 bupropion (BUPROPION) Allergy Unknown UNKNOWN Verified 02/26/25 17:43 gluten (GLUTEN) Allergy Unknown UNKNOWN Verified 02/26/25 17:43 ibuprofen (IBUPROFEN) Allergy Unknown UNKNOWN Verified 02/26/25 17:43 omeprazole (From PRILOSEC) Allergy Unknown UNKNOWN Verified 02/26/25 17:43 soy (SOY) Allergy Unknown UNKNOWN Verified 02/26/25 17:43 sumatriptan (SUMATRIPTAN) Allergy Unknown UNKNOWN Verified 02/26/25 17:43 valacyclovir (From VALTREX) Allergy Unknown UNKNOWN Verified 02/26/25 17:43 amitriptyline Allergy Unknown Verified 02/26/25 17:43 chlorhexidine (From Allergy Hives Verified 02/26/25 17:43 Hibiclens) ondansetron (From Zofran) Allergy Unknown Verified 02/26/25 17:43 propofol Allergy Unknown Verified 02/26/25 17:43 sucralfate Allergy Dizziness Verified 02/26/25 17:43 nut - unspecified (NUT - AdvReac Unknown UNKNOWN Verified 02/26/25 17:43 UNSPECIFIED) metoclopramide (From Reglan) AdvReac Redness of Verified 02/26/25 17:43 Skin DAIRY PRODUCTS Allergy Unknown HEADACHE Uncoded 02/26/25 17:43 SSRI Allergy Unknown UNKNOWN Uncoded 02/26/25 17:43 Review of Systems Review of Systems: as per HPI, full review of systems performed and negative but for the above mentioned pertinent positives and negatives. PMFSH Past Medical History Medical History Anxiety PTSD (post-traumatic stress disorder) Surgical History S/P cholecystectomy Social History Social History Alcohol intake: never Patient Tobacco Use Status: Never used Tobacco Smoked in Last 30 Days: No Use of substances other than those prescribed or required for medical reasons: No Advance Directives: No Advance Directives Information Provided: Yes Do you have a plan to hurt others: No Plan Physical Exam ED Exam Exam: GENERAL: Chronically ill-appearing, conversant, no acute distress. SKIN: Normal skin color for ethnicity, warm, dry, no rashes noted. HEENT: Normocephalic, atraumatic, no stridor, posterior oropharynx nonerythematous, EOMI. NECK: Soft, supple, full ROM, midline structures nontender, no step-offs, no deformities, no lymphadenopathy. CHEST: Heart regular rate and rhythm, no murmurs, symmetric chest rise and fall. PULMONARY: Clear to auscultation bilaterally, no labored breathing, no wheezes/rhales/ rhonchi. ABDOMINAL: Soft, nondistended, nontender, positive bowel sounds in all quadrants. : Deferred. MUSCULOSKELETAL: Normal tone, full range of motion, no deformities, no peripheral edema. NEURO: Alert and oriented to person, CN II through XII intact, no focal neurologic deficits. PSYCHIATRIC: Flat affect, fluid speech, appropriate demeanor. Vital Signs: Vital Signs - 24 hr 02/26/25 17:40 02/26/25 23:00 02/27/25 01:53 Temperature 98.4 F 97.9 F 98.1 F Pulse Rate 80 72 78 Respiratory Rate 17 16 18 Blood Pressure 163/91 H 152/92 H 144/88 H Pulse Oximetry 100 97 97 Oxygen Delivery Method Room Air Room Air Room Air BMI result Body Mass Index 22.2 Course Course Course Narrative: Medical screening exam performed. Please refer to detailed history, exam, evaluation, and management by primary provider. Patient is weak, difficulty with ambulation. Unsteady gait. JS Medications Administered Discontinued Medications Generic Name Dose Route Start Last Admin Trade Name Freq PRN Reason Stop Dose Admin Potassium Chloride 40 meq 02/26/25 23:59 02/27/25 00:12 Potassium Chloride Packet 20 Meq Packet PO 02/27/25 00:00 40 meq ONCE ONE Administration Medical Decision Making Medical Decision Making MDM Narrative: Patient presents today with generalized weakness. Differential diagnosis includes anemia, electrolyte abnormality, infection, rhabdomyolysis/myositis, neurologic disorders such as Guillain-[place] or myasthenia gravis, CVA, medication side effects, deconditioning, dehydration, among many others. A broad-based workup was initiated based on the patient's history and physical examination. They were watched closely on classroom monitor with vital signs that were monitored during the duration of their stay. There are no signs of focal neurological deficit or weakness on exam. 12:11 AM 02/27/2025 (Dr. Caty Littlejohn, D.O.) patient noted to have continued hypokalemia which has been an issue for her in the past. She does not take a potassium supplement. We will add on an oral supplementation and check a magnesium level. Also added on a TSH which had not been performed Differential Diagnosis Differential Diagnoses: The differential diagnosis associated with the presentation includes (As above) Admission/Observation Consideration of admission/observation: Escalation of care including admission/observation considered Lab Data MDM Lab Attestation statement: I reviewed the patient's lab results. 02/26/25 17:54 02/26/25 17:54 Labs: Lab Results 02/26/25 02/26/25 Range/Units 17:54 23:17 WBC 5.8 (4.8-10.8) X10*3/uL RBC 4.79 (4.20-5.50) X10*6/uL Hgb 14.7 (12.0-16.0) g/dl Hct 40.8 (37.0-47.0) % MCV 85.2 (80.0-98.0) fL MCH 30.7 (27.0-33.0) pg MCHC 36.0 H (31.0-35.0) g/dl RDW 12.4 (11.0-16.0) % Plt Count 205 (160-400) X10*3/uL MPV 9.9 (9.4-12.3) fL Immature Gran % (Auto) 0.2 (0.0-0.4) % Neut % (Auto) 55.1 (45-73) % Lymph % (Auto) 34.8 (20-40) % Armstrong % (Auto) 8.7 (2-11) % Eos % (Auto) 0.5 (0-4) % Baso % (Auto) 0.7 (0-2) % Lymph # (Auto) 2.0 (1.2-4.9) X10*3/uL Armstrong # (Auto) 0.5 (0.1-1.2) X10*3/uL Eos # (Auto) 0.0 (0.0-0.4) X10*3/uL Baso # (Auto) 0.0 (0.0-0.2) X10*3/uL Abs Immat Gran (auto) 0.01 (0.00-0.03) X10*3/uL Absolute Neuts (auto) 3.2 (2.0-8.3) x10*3/uL Absolute Nucleated RBC 0.000 (0.0-0.012) X10*3/uL Nucleated RBC % (auto) 0.0 (0.0-0.2) /100WBC Sodium 140 (135-145) mmol/L Potassium 3.0 L (3.3-5.1) mmol/L Chloride 102 (96-108) mmol/L Carbon Dioxide 25 (22-29) mmol/L Anion Gap 16 (12-20) BUN 11 (9-16) mg/dL Creatinine 0.78 (0.5-1.4) mg/dL Estim Creat Clear Calc 50.5 Estimated GFR > 60 Random Glucose 94 (60-115) mg/dL Calcium 9.8 (8.4-10.2) mg/dL Magnesium 2.1 (1.6-2.6) mg/dL Total Bilirubin 0.5 (0.0-1.0) mg/dL AST 33 H (5-31) U/L ALT 32 H (0-31) U/L Alkaline Phosphatase 59 (39-117) U/L Total Protein 7.3 (6.5-8.0) g/dL Albumin 4.9 (3.5-5.0) g/dL TSH 2.51 (0.32-4.0) uIU/mL Urine Color Yellow Urine Appearance Clear Urine pH 6.0 (5.0-9.0) Ur Specific [place] 1.010 (1.005-1.025) Urine Protein Negative (Neg-Trace) mg/dL Urine Glucose (UA) Negative (Negative) mg/dL Urine Ketones Trace (Negative) mg/dL Urine Blood Small (1+) H (Negative) Urine Nitrite Negative (Negative) Ur Leukocyte Esterase Negative (Negative) Urine RBC 0-2 (0-2) /HPF Urine WBC 0-5 (0-5) /HPF Ur Squamous Epith Cells 0-2 (0-2) /HPF Urine Bacteria None Seen (None Seen) Hyaline Casts 0-2 (0-2) /LPF Salicylates < 5.0 L (15-30) mg/dL Urine Opiates Screen Not Detected (Not Detect) Ur Buprenorphine Scrn Not Detected (Not Detect) ng/mL Ur Oxycodone Screen Not Detected (Not Detect) ng/mL Urine Methadone Screen Not Detected (Not Detect) ng/mL Urine Fentanyl Screen Not Detected (Not Detect) Acetaminophen < 3 (<30) mcg/mL Ur Barbiturates Screen Not Detected (Not Detect) Ur Phencyclidine Scrn Not Detected (Not Detect) Ur Amphetamines Screen Not Detected (Not Detect) U Benzodiazepines Scrn Not Detected (Not Detect) Urine Cocaine Screen Not Detected (Not Detect) U Marijuana (THC) Screen Not Detected (Not Detect) Ethyl Alcohol < 10 mg/dL Independent Interpretation I performed an independent interpretation of an: EKG Interpretation: My independent interpretation of the ECG reveals normal sinus rhythm with rate of 82, normal axis, normal intervals, no ST elevations or depressions to suggest ischemic changes, relatively unchanged from previous on 11/23/2024. Radiology Impression Discussion of test interpretation with radiology: I have reviewed the radiologist's reading. Radiologist Impression: CT head without contrast Comparison: None provided Findings: No intra-axial mass, midline shift, hydrocephalus, or acute hemorrhage. No significant atrophy-like change or white matter disease. There is no sinus or mastoid fluid. The orbits are unremarkable. There is no acute fracture. IMPRESSION: 1. No acute intracranial findings. This document has been electronically signed by: Hoang Madison MD on 02/26/2025 19:09:27 External Record Review External record reviewed: Inpatient record Chronic Conditions Patient?s care impacted by: Other (Generalized anxiety disorder) Discharge Plan Discharge Clinical Impression: Hypokalemia, Acute muscle weakness, Anxiety about treatment, Adverse drug effect Patient Disposition: Home, Self-Care Additional Instructions: DIAGNOSIS & TREATMENT: You were seen in the Emergency Department for your chest discomfort and weakness. We performed an EKG, laboratory work and head CT which did not reveal any acute abnormalities that would explain your symptoms aside from low potassium levels. FURTHER CARE: We have not found any emergent physical exam or lab abnormalities that would require admission to the hospital today. Many people who come to the ER with chest discomfort do not leave with a specific diagnosis at the end of their visit. In the Emergency Department we try to make sure that there is no emergent problem that needs admission to the hospital or antibiotics right now. This does not mean that your evaluation is complete--please be sure to follow up with your regular doctor as additional testing as an outpatient may be indicated. Please be certain to drink plenty of fluids over the next several days. WHEN YOU SHOULD BE SEEN NEXT: Please follow-up with your primary care provider within the next 2-3 days for reevaluation of your symptoms. WHEN TO RETURN TO THE ED: Monitor your symptoms closely and return to the emergency department immediately for any new/worsening symptoms including: Worsening chest pain, difficulty breathing, fevers greater than 100 degrees, passing out, any new symptom that concerns you. Call 911 with any medical emergency. Prescriptions: New potassium chloride [K-Tab] 20 mEq tablet extended release 20 meq PO DAILY 30 Days Qty: 30 0RF No Action metoclopramide HCl [Reglan] 10 mg tablet 5 mg PO Q6H PRN (Reason: nausea and vomiting) Qty: 10 0RF acetaminophen [Tylenol] 325 mg Tablet 325 mg PO QID PRN (Reason: Pain) famotidine 20 mg Tablet 20 mg PO BEDTIME lorazepam 0.5 mg Tablet 0.5 mg PO DAILY PRN (Reason: Anxiety) magnesium 250 mg Tablet 250 mg PO DAILY [place] 3 Fish Oil 684-1,200 mg Capsule,Delayed Release(Dr/Ec) 1 cap PO DAILY metoclopramide HCl [Reglan] 10 mg tablet 10 mg PO Q6H PRN (Reason: nausea and vomiting) Qty: 10 0RF hydroxyzine HCl 10 mg tablet 10 mg PO TID PRN (Reason: anxiety) Qty: 14 0RF Print Language: Greek
[2025-02-26 17:40] VITALS: BP 163/91; PULSE 80; RESP 17; TEMP 36.9; O2SAT 100; BMI 22.2
[2025-02-26 18:00] LABS: MANUAL DIFF FLAG NO
[2025-02-26 18:01] LABS: Hematocrit 40.8 % (37.0-47.0); Hemoglobin 14.7 g/dl (12.0-16.0); Imm Gran Abs Auto 0.01 X10*3/uL (0.00-0.03); Imm Gran Pct Auto 0.2 % (0.0-0.4); Lymphocytes Absolute Auto 2.0 X10*3/uL (1.2-4.9); Mean Corpuscular HGB Conc 36.0 g/dl (31.0-35.0); Mean Corpuscular Hemoglobin 30.7 pg (27.0-33.0); Mean Corpuscular Volume 85.2 fL (80.0-98.0); NRBC Abs Auto 0.000 X10*3/uL (0.0-0.012); NRBC Pct Auto 0.0 /100WBC (0.0-0.2); Platelet Count 205 X10*3/uL (160-400); Red Blood Count 4.79 X10*6/uL (4.20-5.50); White Blood Count 5.8 X10*3/uL (4.8-10.8)
[2025-02-26 18:17] LABS: Alanine Aminotransferase 32 U/L (0-31); Albumin Level 4.9 g/dL (3.5-5.0); Alkaline Phosphatase 59 U/L (39-117); Anion Gap 16 (12-20); Aspartate Amino Transferase 33 U/L (5-31); Blood Urea Nitrogen 11 mg/dL (9-16); Calcium 9.8 mg/dL (8.4-10.2); Carbon Dioxide 25 mmol/L (22-29); Chloride 102 mmol/L (96-108); Creatinine Clr Calc Pharmacy 50.5; Estimated Glomerular Filt Rate > 60; Potassium 3.0 mmol/L (3.3-5.1); Sodium 140 mmol/L (135-145); Total Protein 7.3 g/dL (6.5-8.0)
[2025-02-26 18:19] LABS: Acetaminophen LAB < 3 mcg/mL (<30); Salicylate < 5.0 mg/dL (15-30)
[2025-02-26 23:00] VITALS: BP 152/92; PULSE 72; RESP 16; TEMP 36.6; O2SAT 97
[2025-02-26 23:29] LABS: Appearance Urine Clear; Glucose Urine UA Negative (Negative); PH 6.0 (5.0-9.0); Specific Gravity - Urine 1.010 (1.005-1.025); UMIC TRIGGER UA YES
[2025-02-27] MEDS: Potassium Chloride Packet 20 MEQ PACKET 40 MEQ PO (00:12)
[2025-02-27 00:22] LABS: Magnesium 2.1 mg/dL (1.6-2.6)
[2025-02-27 00:36] LABS: Thyroid Stimulating Hormone 2.51 uIU/mL (0.32-4.0)
[2025-02-27 01:04] LABS: Cannabinoid Screen Urine Not Detected (Not Detect)
[2025-02-27 01:53] VITALS: BP 144/88; PULSE 78; RESP 18; TEMP 36.7; O2SAT 97
[2025-02-27 04:33] VITALS: BP 138/74; PULSE 89; RESP 16; TEMP 36.5; O2SAT 98
== END 2025-02-27 04:34 | disposition home or self-care (01) ==
PROVIDERS: Emergency Provider Emergency Medicine; PCP Family Medicine; Referring Provider Physician Assistant
DX: E87.6 Hypokalemia (principal); M62.81 Muscle weakness (generalized); F41.9 Anxiety disorder, unspecified; T43.595A Adverse effect of other antipsychotics and neuroleptics, initial encounter; Y92.9 Unspecified place or not applicable; R07.9 Chest pain, unspecified; Z79.899 Other long term (current) drug therapy
CPT/HCPCS: 36415; 70450; 80053; 80143; 80179; 80307; 81001; 83735; 84443; 85025; 93005; 99284; 99285

== ENCOUNTER → 2025-02-26 17:08 | Outpatient (BNV) | payer OTHER, SELFPAY | PROVIDERS: Emergency Provider Emergency Medicine; PCP Family Medicine; Visit Provider Internal Medicine Cardiovascular Disease | DX: R07.9 Chest pain, unspecified (principal) | CPT/HCPCS: 93010 ==

== ENCOUNTER → 2025-02-26 17:30 | Outpatient (BNV) | payer OTHER, SELFPAY | PROVIDERS: PCP Family Medicine; Visit Provider Specialist | DX: S09.90XA Unspecified injury of head, initial encounter (principal) | CPT/HCPCS: 70450 ==

== ENCOUNTER 2025-02-28 19:39 | Emergency (ER) | payer OTHER, SELFPAY ==
--- NOTE | 2025-02-28 | ECG_ITS ---
Test Reason : CP Blood Pressure : */* mmHG Vent. Rate : 67 BPM Atrial Rate : * BPM P-R Int : * ms QRS Dur : 82 ms QT Int : 402 ms P-R-T Axes : * 42 44 degrees QTcB Int : 424 ms Normal sinus rhythm Normal ECG When compared with ECG of 26-Feb-2025 17:08, No significant changes seen Referred By: Generic ED Physician Electronically Signed By: SERA LANGE MD
--- NOTE | ~2025-02-28 | XR_ITS ---
CLINICAL HISTORY: chest pain Chest X-ray, 2 Views COMPARISON: CR - XR CHEST 1V - 11/23/24 01:56 EDT FINDINGS: No consolidation. Mild bibasilar atelectasis. Mild blunting of the left costophrenic angle. No pneumothorax. No cardiomegaly. No acute fracture. IMPRESSION: Small left pleural effusion. This document has been electronically signed by: Andreas Watson MD on 02/28/2025 21:55:02
[2025-02-28 19:57] VITALS: BP 151/75; BP 156/90; PULSE 78; RESP 16; TEMP 36.2; O2SAT 98; O2SAT 99; BMI 23.0
[2025-02-28 20:38] VITALS: BP 146/89; PULSE 71; RESP 16; TEMP 36.9; O2SAT 97
[2025-02-28 20:41] LABS: MANUAL DIFF FLAG NO
[2025-02-28 20:43] LABS: Hematocrit 38.8 % (37.0-47.0); Hemoglobin 14.0 g/dl (12.0-16.0); Imm Gran Abs Auto 0.01 X10*3/uL (0.00-0.03); Imm Gran Pct Auto 0.2 % (0.0-0.4); Lymphocytes Absolute Auto 1.7 X10*3/uL (1.2-4.9); Mean Corpuscular HGB Conc 36.1 g/dl (31.0-35.0); Mean Corpuscular Hemoglobin 30.8 pg (27.0-33.0); Mean Corpuscular Volume 85.3 fL (80.0-98.0); NRBC Abs Auto 0.000 X10*3/uL (0.0-0.012); NRBC Pct Auto 0.0 /100WBC (0.0-0.2); Platelet Count 199 X10*3/uL (160-400); Red Blood Count 4.55 X10*6/uL (4.20-5.50); White Blood Count 5.0 X10*3/uL (4.8-10.8)
[2025-02-28 20:57] LABS: Alanine Aminotransferase 30 U/L (0-31); Albumin Level 4.6 g/dL (3.5-5.0); Alkaline Phosphatase 54 U/L (39-117); Anion Gap 14 (12-20); Aspartate Amino Transferase 30 U/L (5-31); Blood Urea Nitrogen 14 mg/dL (9-16); Calcium 9.4 mg/dL (8.4-10.2); Carbon Dioxide 24 mmol/L (22-29); Chloride 105 mmol/L (96-108); Creatinine Clr Calc Pharmacy 59.6; Estimated Glomerular Filt Rate > 60; Potassium 3.3 mmol/L (3.3-5.1); Sodium 140 mmol/L (135-145); Total Protein 6.9 g/dL (6.5-8.0)
--- NOTE | 2025-02-28 20:59 | ED.CHESTPAIN ---
HPI - Chest Pain General Chief Complaint: Chest Pain Stated Complaint: Chest pain Time Seen by Provider: 02/28/25 20:59 Source: patient and EMS Mode of arrival: EMS Limitations: no limitations History of Present Illness ED Provider: Dr. Caty Littlejohn HPI narrative: 59-year-old female with a history of anxiety and GERD presenting with substernal chest pressure, generalized weakness and fatigue ongoing for at least a week now. She was seen here the day before yesterday for similar complaints. At that time she was found to be hypokalemic and had a potassium repletion here in the emergency department. Was prescribed potassium for home but unfortunately was unable to fill this medication. Today she felt weak when she was getting dressed and came to the emergency department for evaluation. She continues to have substernal chest pain that she describes as a pressure. Talk to her doctor who told her not to change her BuSpar dosage, that she needed it for her anxiety however, she reports halving her dose anyway. Continues with diarrhea which has been relatively unchanged. States she is concerned now that she might be developing multiple sclerosis and is requesting an MRI of the brain. Related Data Home Medications ?Medication ?Instructions ?Recorded ?Confirmed acetaminophen 325 mg tablet 325 mg PO QID PRN Pain 11/04/21 11/04/21 (Tylenol) famotidine 20 mg tablet 20 mg PO BEDTIME 11/04/21 11/04/21 lorazepam 0.5 mg tablet 0.5 mg PO DAILY PRN Anxiety 11/04/21 11/04/21 magnesium 250 mg tablet 250 mg PO DAILY 11/04/21 11/04/21 omega-3 fatty acids-fish oil 684 1 cap PO DAILY 11/04/21 11/04/21 mg-1,200 mg capsule,delayed release Previous Rx's ?Medication ?Instructions ?Recorded metoclopramide HCl 10 mg tablet 5 mg (1/2 x 10 mg) PO Q6H PRN 11/04/21 (Reglan) nausea and vomiting #10 tabs metoclopramide HCl 10 mg tablet 10 mg PO Q6H PRN nausea and 08/16/23 (Reglan) vomiting #10 tabs hydroxyzine HCl 10 mg tablet 10 mg PO TID PRN anxiety #14 tabs 11/23/24 potassium chloride 20 mEq 20 meq PO DAILY 30 days #30 tabs 02/27/25 tablet,extended release (K-Tab) Allergies Allergy/AdvReac Type Severity Reaction Status Date / Time azithromycin (AZITHROMYCIN) Allergy Unknown UNKNOWN Verified 02/28/25 20:01 bupropion (BUPROPION) Allergy Unknown UNKNOWN Verified 02/28/25 20:01 gluten (GLUTEN) Allergy Unknown UNKNOWN Verified 02/28/25 20:01 ibuprofen (IBUPROFEN) Allergy Unknown UNKNOWN Verified 02/28/25 20:01 omeprazole (From PRILOSEC) Allergy Unknown UNKNOWN Verified 02/28/25 20:01 soy (SOY) Allergy Unknown UNKNOWN Verified 02/28/25 20:01 sumatriptan (SUMATRIPTAN) Allergy Unknown UNKNOWN Verified 02/28/25 20:01 valacyclovir (From VALTREX) Allergy Unknown UNKNOWN Verified 02/28/25 20:01 amitriptyline Allergy Unknown Verified 02/28/25 20:01 chlorhexidine (From Allergy Hives Verified 02/28/25 20:01 Hibiclens) ondansetron (From Zofran) Allergy Unknown Verified 02/28/25 20:01 propofol Allergy Unknown Verified 02/28/25 20:01 sucralfate Allergy Dizziness Verified 02/28/25 20:01 nut - unspecified (NUT - AdvReac Unknown UNKNOWN Verified 02/28/25 20:01 UNSPECIFIED) metoclopramide (From Reglan) AdvReac Redness of Verified 02/28/25 20:01 Skin DAIRY PRODUCTS Allergy Unknown HEADACHE Uncoded 02/28/25 20:01 SSRI Allergy Unknown UNKNOWN Uncoded 02/28/25 20:01 Review of Systems Review of Systems: As per HPI, full review of systems performed and negative but for the above mentioned pertinent positives and negatives. PMFSH Past Medical History Medical History Anxiety PTSD (post-traumatic stress disorder) Surgical History S/P cholecystectomy Social History Social History Alcohol intake: never Patient Tobacco Use Status: Never used Tobacco Smoked in Last 30 Days: No Use of substances other than those prescribed or required for medical reasons: No Advance Directives: Yes Advance Directives Information Provided: No Advance Directives on File: No Physical Exam Exam: Exam: GENERAL: Anxious, tearful. SKIN: Normal skin color for ethnicity, warm, dry, intact, no rashes noted. HEENT: Normocephalic, atraumatic, no stridor, posterior oropharynx nonerythematous, dentition intact, EOMI. NECK: Soft, supple, full ROM, midline structures nontender, no step-offs, no deformities, no lymphadenopathy. CHEST: Heart regular rhythm, no murmurs, symmetric chest rise and fall, no crepitus. PULMONARY: Clear to auscultation bilaterally, no labored breathing, no wheezes/rhales/ rhonchi. ABDOMINAL: Soft, nondistended, nontender, positive bowel sounds in all quadrants. : Deferred. MUSCULOSKELETAL: Normal tone, full range of motion, no deformities, no peripheral edema. NEURO: Alert and oriented x3, CN II through XII intact, equal strength and sensation bilateral upper and lower extremities, no focal neurologic deficits. PSYCHIATRIC: Anxious affect, tearful, fluid speech, good eye contact and appropriate demeanor. Vital Signs: Vital Signs: Last Vital Signs Temp 98.4 F 02/28/25 20:38 Pulse 71 02/28/25 20:38 Resp 16 02/28/25 20:38 BP 146/89 H 02/28/25 20:38 Pulse Ox 97 02/28/25 20:38 O2 Del Method Room Air 02/28/25 20:38 BMI result Body Mass Index 23.0 Medical Decision Making Medical Decision Making MDM Narrative: Patient presents today with generalized weakness. Differential diagnosis includes anemia, electrolyte abnormality, infection, rhabdomyolysis/myositis, neurologic disorders such as Guillain-[place] or myasthenia gravis, CVA, medication side effects, deconditioning, dehydration, among many others. A broad-based workup was initiated based on the patient's history and physical examination. They were watched closely on front desk monitor with vital signs that were monitored during the duration of their stay. There are no signs of focal neurological deficit or weakness on exam. She was seen here just 2 days ago with similar complaints and has not really followed up with her primary care doctor yet. She had an extensive workup during her ER visit 2 days ago including TSH, cardiac enzymes, and a head CT which were all negative. I suspect many of her symptoms are related to anxiety and I have discussed this with her at length both at her previous visit and today. Added on a D-dimer which is negative making pulmonary embolism very unlikely. She has normal vital signs, nontoxic exam, ambulatory to the restroom without assistance and is stable for discharge at this point. Differential Diagnosis Differential Diagnoses: The differential diagnosis associated with the presentation includes (as above) Admission/Observation Consideration of admission/observation: Escalation of care including admission/observation considered Lab Data MDM Lab Attestation statement: I reviewed the patient's lab results. 02/28/25 20:36 02/28/25 20:36 Labs: Lab Results 02/28/25 02/28/25 Range/Units 20:36 22:27 WBC 5.0 (4.8-10.8) X10*3/uL RBC 4.55 (4.20-5.50) X10*6/uL Hgb 14.0 (12.0-16.0) g/dl Hct 38.8 (37.0-47.0) % MCV 85.3 (80.0-98.0) fL MCH 30.8 (27.0-33.0) pg MCHC 36.1 H (31.0-35.0) g/dl RDW 12.2 (11.0-16.0) % Plt Count 199 (160-400) X10*3/uL MPV 10.0 (9.4-12.3) fL Immature Gran % (Auto) 0.2 (0.0-0.4) % Neut % (Auto) 51.9 (45-73) % Lymph % (Auto) 34.5 (20-40) % [place] % (Auto) 11.0 (2-11) % Eos % (Auto) 1.6 (0-4) % Baso % (Auto) 0.8 (0-2) % Lymph # (Auto) 1.7 (1.2-4.9) X10*3/uL [place] # (Auto) 0.6 (0.1-1.2) X10*3/uL Eos # (Auto) 0.1 (0.0-0.4) X10*3/uL Baso # (Auto) 0.0 (0.0-0.2) X10*3/uL Abs Immat Gran (auto) 0.01 (0.00-0.03) X10*3/uL Absolute Neuts (auto) 2.6 (2.0-8.3) x10*3/uL Absolute Nucleated RBC 0.000 (0.0-0.012) X10*3/uL Nucleated RBC % (auto) 0.0 (0.0-0.2) /100WBC D-Dimer High Sensitivty < 150 NG/ML Sodium 140 (135-145) mmol/L Potassium 3.3 (3.3-5.1) mmol/L Chloride 105 (96-108) mmol/L Carbon Dioxide 24 (22-29) mmol/L Anion Gap 14 (12-20) BUN 14 (9-16) mg/dL Creatinine 0.83 (0.5-1.4) mg/dL Estim Creat Clear Calc 59.6 Estimated GFR > 60 Random Glucose 104 (60-115) mg/dL Calcium 9.4 (8.4-10.2) mg/dL Total Bilirubin 0.5 (0.0-1.0) mg/dL AST 30 (5-31) U/L ALT 30 (0-31) U/L Alkaline Phosphatase 54 (39-117) U/L Total Creatine Kinase 75 (26-140) U/L Troponin I High Sens < 2.7 (<3.5-17.0) ng/L Total Protein 6.9 (6.5-8.0) g/dL Albumin 4.6 (3.5-5.0) g/dL Urine Color Yellow Urine Appearance Clear Urine pH 8.0 (5.0-9.0) Ur Specific [place] <= 1.005 (1.005-1.025) Urine Protein Negative (Neg-Trace) mg/dL Urine Glucose (UA) Negative (Negative) mg/dL Urine Ketones Negative (Negative) mg/dL Urine Blood Small (1+) H (Negative) Urine Nitrite Negative (Negative) Ur Leukocyte Esterase Negative (Negative) Urine RBC 3-5 H (0-2) /HPF Urine WBC 0-5 (0-5) /HPF Ur Squamous Epith Cells 0-2 (0-2) /HPF Urine Bacteria None Seen (None Seen) Hyaline Casts 0-2 (0-2) /LPF Chronic Conditions Patient?s care impacted by: Other (Anxiety) Social Determinants Patient?s care significantly limited by Social Determinants of Health including: Problems related to primary support group Discharge Plan Discharge Clinical Impression: Atypical chest pain, Episode of generalized weakness Patient Disposition: Home, Self-Care Instructions: Noncardiac Chest Pain (ED), Weakness (ED) Additional Instructions: Please follow-up with your primary care doctor as soon as possible. Your blood work today has been reassuring. Chest x-ray is clear showing no evidence of pneumonia or other acute cardiopulmonary process. It is imperative that you follow-up with your primary care doctor regarding your generalized weakness and anxiety. Many of your symptoms are likely related to your anxiety and either under medication or over medication. These things should be managed by the doctor that prescribes them to you. Return to the ER with any new or worsening symptoms including: Worsening chest pain, difficulty breathing, fevers greater than 100?, any new symptom that concerns you. Call 911 with any medical emergency. Prescriptions: No Action metoclopramide HCl [Reglan] 10 mg tablet 5 mg PO Q6H PRN (Reason: nausea and vomiting) Qty: 10 0RF acetaminophen [Tylenol] 325 mg Tablet 325 mg PO QID PRN (Reason: Pain) famotidine 20 mg Tablet 20 mg PO BEDTIME lorazepam 0.5 mg Tablet 0.5 mg PO DAILY PRN (Reason: Anxiety) magnesium 250 mg Tablet 250 mg PO DAILY [place] 3 Fish Oil 684-1,200 mg Capsule,Delayed Release(Dr/Ec) 1 cap PO DAILY potassium chloride [K-Tab] 20 mEq tablet extended release 20 meq PO DAILY 30 Days Qty: 30 0RF metoclopramide HCl [Reglan] 10 mg tablet 10 mg PO Q6H PRN (Reason: nausea and vomiting) Qty: 10 0RF hydroxyzine HCl 10 mg tablet 10 mg PO TID PRN (Reason: anxiety) Qty: 14 0RF Print Language: Kazakh
[2025-02-28 21:06] LABS: Troponin-I High Sensitivity < 2.7 ng/L (<3.5-17.0)
[2025-02-28 22:35] LABS: Appearance Urine Clear; Glucose Urine UA Negative (Negative); PH 8.0 (5.0-9.0); Specific Gravity - Urine <= 1.005 (1.005-1.025); UMIC TRIGGER UACC YES
[2025-02-28 23:04] LABS: D Dimer High Sensitivity < 150 NG/ML
[2025-03-01 00:52] VITALS: BP 142/87; PULSE 66; RESP 14; TEMP 36.9; O2SAT 99
[2025-03-01 01:16] VITALS: BP 142/87; PULSE 66; RESP 14; TEMP 36.9; O2SAT 99
== END 2025-03-01 01:16 | disposition home or self-care (01) ==
PROVIDERS: Emergency Provider Emergency Medicine; PCP Family Medicine
DX: R07.89 Other chest pain (principal); R53.1 Weakness; E87.6 Hypokalemia; Z79.899 Other long term (current) drug therapy
CPT/HCPCS: 36415; 71046; 80053; 81001; 82550; 84484; 85025; 85379; 93005; 99283; 99284

== ENCOUNTER → 2025-02-28 20:16 | Outpatient (BNV) | payer OTHER, SELFPAY | PROVIDERS: Emergency Provider Emergency Medicine; PCP Family Medicine; Visit Provider Internal Medicine Cardiovascular Disease | DX: R07.89 Other chest pain (principal) | CPT/HCPCS: 93010 ==

== ENCOUNTER → 2025-02-28 21:14 | Outpatient (BNV) | payer OTHER, SELFPAY | PROVIDERS: Emergency Provider Emergency Medicine; PCP Family Medicine; Visit Provider Radiology Diagnostic Radiology | DX: J90 Pleural effusion, not elsewhere classified (principal) | CPT/HCPCS: 71046 ==

== ENCOUNTER 2025-03-21 06:07 | Emergency (ER) | payer OTHER, SELFPAY ==
[2025-03-21 06:12] VITALS: BP 160/90; PULSE 84
[2025-03-21 06:23] VITALS: BP 130/78; PULSE 78; RESP 22; TEMP 36.6; O2SAT 95; BMI 19.5
--- NOTE | 2025-03-21 06:26 | ED.ANXIETY ---
HPI - Anxiety General Chief Complaint: Anxiety Stated Complaint: ANXIETY/ PANIC ATTACK/ABDOMINAL PAIN Time Seen by Provider: 03/21/25 06:09 Source: patient, EMS and old records reviewed Mode of arrival: EMS Limitations: no limitations History of Present Illness ED Provider: KATHERINE PATE narrative: 59 yo female with PMH of hypokalemia, anxiety, PTSD who is here with c/o stress and anxiety from issues with worrying about her parents [facility] care. She notes this happens a lot with stress. She always gets abd pain, n/v and then reports she becomes paralyzed. No recent travel/procedures. I asked if she gets this a lot with her anxiety yes you can see the log here, I always come in with these symptoms between 2 to 4am. I asked if anything else was different. MD complaint: anxiety and other Onset (ago): hour(s) (3am) Symptoms: palpitations, extremity numbness/tingling, dry mouth, sense of impending doom and muscle cramps Severity: severe Quality: constant Place: home History of similar episodes: Yes Provoking factors: emotional stress Relieving factors: nothing Exacerbating factors: nothing Associated symptoms: shortness of breath, palpitations, nausea/vomiting and weakness Related Data Home Medications ?Medication ?Instructions ?Recorded ?Confirmed acetaminophen 325 mg tablet 325 mg PO QID PRN Pain 11/04/21 11/04/21 (Tylenol) famotidine 20 mg tablet 20 mg PO BEDTIME 11/04/21 11/04/21 lorazepam 0.5 mg tablet 0.5 mg PO DAILY PRN Anxiety 11/04/21 11/04/21 magnesium 250 mg tablet 250 mg PO DAILY 11/04/21 11/04/21 omega-3 fatty acids-fish oil 684 1 cap PO DAILY 11/04/21 11/04/21 mg-1,200 mg capsule,delayed release Previous Rx's ?Medication ?Instructions ?Recorded metoclopramide HCl 10 mg tablet 5 mg (1/2 x 10 mg) PO Q6H PRN 11/04/21 (Reglan) nausea and vomiting #10 tabs metoclopramide HCl 10 mg tablet 10 mg PO Q6H PRN nausea and 08/16/23 (Reglan) vomiting #10 tabs hydroxyzine HCl 10 mg tablet 10 mg PO TID PRN anxiety #14 tabs 11/23/24 potassium chloride 20 mEq 20 meq PO DAILY 30 days #30 tabs 02/27/25 tablet,extended release (K-Tab) Allergies Allergy/AdvReac Type Severity Reaction Status Date / Time azithromycin (AZITHROMYCIN) Allergy Unknown UNKNOWN Verified 03/21/25 06:23 bupropion (BUPROPION) Allergy Unknown UNKNOWN Verified 03/21/25 06:23 gluten (GLUTEN) Allergy Unknown UNKNOWN Verified 03/21/25 06:23 ibuprofen (IBUPROFEN) Allergy Unknown UNKNOWN Verified 03/21/25 06:23 omeprazole (From PRILOSEC) Allergy Unknown UNKNOWN Verified 03/21/25 06:23 soy (SOY) Allergy Unknown UNKNOWN Verified 03/21/25 06:23 sumatriptan (SUMATRIPTAN) Allergy Unknown UNKNOWN Verified 03/21/25 06:23 valacyclovir (From VALTREX) Allergy Unknown UNKNOWN Verified 03/21/25 06:23 amitriptyline Allergy Unknown Verified 03/21/25 06:23 chlorhexidine (From Allergy Hives Verified 03/21/25 06:23 Hibiclens) ondansetron (From Zofran) Allergy Unknown Verified 03/21/25 06:23 propofol Allergy Unknown Verified 03/21/25 06:23 sucralfate Allergy Dizziness Verified 03/21/25 06:23 nut - unspecified (NUT - AdvReac Unknown UNKNOWN Verified 03/21/25 06:23 UNSPECIFIED) metoclopramide (From Reglan) AdvReac Redness of Verified 03/21/25 06:23 Skin DAIRY PRODUCTS Allergy Unknown HEADACHE Uncoded 03/21/25 06:23 SSRI Allergy Unknown UNKNOWN Uncoded 03/21/25 06:23 Review of Systems Review of Systems: Constitutional : No Weight loss, No Fever, No Chills ENT/Mouth : No sore throat, No Rhinorrhea Eyes: No Swelling, No Redness Cardiovascular : No Chest Pain, No SOB, NoEdema Respiratory : No Cough, No Sputum, No Wheezing Gastrointestinal : Positive Nausea, Positive Vomiting, positive Diarrhea, positive abdominal Pain, No Hematochezia, No Melena Genitourinary : No Dysuria, No Urinary Frequency, No Hematuria, No Urgency Musculoskeletal : No joint pain, No Myalgias, No Joint Swelling Skin : No Skin Lesions, No rash Neuro : No Weakness, No Numbness, No Dizziness, No Headache Psych : pos Anxiety/Panic, No Depression All other systems reviewed and are negative. FORMERLY [facility], [facility] Past Medical History Attestation statement: The following information was validated with the patient. Source: old records reviewed Medical History Anxiety PTSD (post-traumatic stress disorder) Surgical History S/P cholecystectomy Social History Social History Alcohol intake: never Patient Tobacco Use Status: Never used Tobacco Advance Directives: No Advance Directives Information Provided: Yes Physical Exam Vital Signs: Vital Signs: Last Vital Signs Temp 97.9 F 03/21/25 09:53 Pulse 85 03/21/25 09:53 Resp 16 03/21/25 09:53 BP 137/84 03/21/25 09:53 Pulse Ox 98 03/21/25 09:53 O2 Del Method Room Air 03/21/25 09:53 BMI result Body Mass Index 19.5 Appearance: Alert. Oriented X3. anxious crying out shaking mild acute distress. Eyes: Pupils equal, round and reactive to light. ENT: Pharynx normal. Neck: Normal inspection. Neck supple. CVS: Normal heart rate and rhythm. Pulses normal. Respiratory: No respiratory distress. Breath sounds normal. Abdomen: Soft and moderate diffuse ttp no rebound Skin: Skin warm and dry. Normal skin color. Normal skin turgor. Extremities: No lower extremity edema. No calf ttp Neuro: Oriented X 3. No motor deficit. No sensory deficit. Course Course Course Narrative: tolerating PO Reevaluation(s) Reevaluation #1: physician observation ended 1226pm Medications Administered Discontinued Medications Generic Name Dose Route Start Last Admin Trade Name Freq PRN Reason Stop Dose Admin Al Hydroxide/Mg Hydroxide 15 ml 03/21/25 07:56 03/21/25 08:48 Magnesium Hydrox/Alum Hydrox 30 Ml Oral.Susp PO 03/21/25 07:57 15 ml ONCE ONE Administration Buspirone HCl 2.5 mg 03/21/25 07:56 03/21/25 08:47 Buspirone Hcl 5 Mg Tablet PO 03/21/25 07:57 2.5 mg ONCE ONE Administration Diphenhydramine HCl 25 mg 03/21/25 06:32 03/21/25 06:40 Diphenhydramine Hcl 50 Mg/Ml Vial IM 03/21/25 06:33 25 mg ONCE ONE Administration Lidocaine HCl 15 ml 03/21/25 07:56 03/21/25 08:48 Lidocaine Hcl Viscous 2 % 15 Ml Solution MUCOUS MEM 03/21/25 07:57 15 ml ONCE ONE Administration Potassium Chloride 40 meq 03/21/25 07:20 03/21/25 08:09 Potassium Chloride Er 20 Meq Tab.Er.Prt PO 03/21/25 07:21 Not Given ONCE ONE Potassium Chloride 40 meq 03/21/25 08:08 03/21/25 08:47 Potassium Chloride Packet 20 Meq Packet PO 03/21/25 08:09 40 meq ONCE ONE Administration Prochlorperazine Edisylate 10 mg 03/21/25 06:32 03/21/25 06:40 Prochlorperazine Edisylate 10 Mg/2 Ml Vial IM 03/21/25 06:33 10 mg ONCE ONE Administration Medical Decision Making Medical Decision Making MDM Narrative: 59 yo female with PMH of hypokalemia, anxiety, PTSD who is here with c/o typical bout of waking in middle of the night with n/v abd pain and anxiety. She states her parents [facility] care is really triggering her. She states you'll see my log this happens all the time. She has no localized ttp and no fevers. She states she gets this all the time with her anxiety. Will obtain labs, EKG, IM medications. Differential Diagnosis Differential Diagnoses: The differential diagnosis associated with the presentation includes anxiety, lyte abnormality, dehydration Admission/Observation Consideration of admission/observation: Escalation of care including admission/observation considered physician observation started at 753am pending CARE team. cleared by CARE team and case management who has set up services stable for DC she states she is still anxious but she can be managed with home medications Consult Healthcare Provider Management of the patient was discussed with: Behavioral Health Provider Lab Data [facility] Lab Attestation statement: I reviewed the patient's lab results. 03/21/25 06:56 03/21/25 06:56 Labs: Lab Results 03/21/25 03/21/25 Range/Units 06:56 10:30 WBC 6.7 (4.8-10.8) X10*3/uL RBC 4.60 (4.20-5.50) X10*6/uL Hgb 14.3 (12.0-16.0) g/dl Hct 39.2 (37.0-47.0) % MCV 85.2 (80.0-98.0) fL MCH 31.1 (27.0-33.0) pg MCHC 36.5 H (31.0-35.0) g/dl RDW 12.3 (11.0-16.0) % Plt Count 190 (160-400) X10*3/uL MPV 10.5 (9.4-12.3) fL Immature Gran % (Auto) 0.3 (0.0-0.4) % Neut % (Auto) 81.6 H (45-73) % Lymph % (Auto) 13.7 L (20-40) % [place] % (Auto) 3.9 (2-11) % Eos % (Auto) 0.1 (0-4) % Baso % (Auto) 0.4 (0-2) % Lymph # (Auto) 0.9 L (1.2-4.9) X10*3/uL [place] # (Auto) 0.3 (0.1-1.2) X10*3/uL Eos # (Auto) 0.0 (0.0-0.4) X10*3/uL Baso # (Auto) 0.0 (0.0-0.2) X10*3/uL Abs Immat Gran (auto) 0.02 (0.00-0.03) X10*3/uL Absolute Neuts (auto) 5.5 (2.0-8.3) x10*3/uL Absolute Nucleated RBC 0.000 (0.0-0.012) X10*3/uL Nucleated RBC % (auto) 0.0 (0.0-0.2) /100WBC Sodium 142 (135-145) mmol/L Potassium 3.0 L (3.3-5.1) mmol/L Chloride 106 (96-108) mmol/L Carbon Dioxide 22 (22-29) mmol/L Anion Gap 17 (12-20) BUN 15 (9-16) mg/dL Creatinine 0.77 (0.5-1.4) mg/dL Estim Creat Clear Calc 55.6 Estimated GFR > 60 Random Glucose 129 H (60-115) mg/dL Calcium 9.7 (8.4-10.2) mg/dL Magnesium 1.9 (1.6-2.6) mg/dL Total Bilirubin 0.6 (0.0-1.0) mg/dL Direct Bilirubin 0.1 (0.0-0.5) mg/dL AST 35 H (5-31) U/L ALT 28 (0-31) U/L Alkaline Phosphatase 54 (39-117) U/L Troponin I High Sens < 2.7 (<3.5-17.0) ng/L Total Protein 7.1 (6.5-8.0) g/dL Albumin 4.9 (3.5-5.0) g/dL Lipase 24 (8-78) U/L Urine Color Yellow Urine Appearance Clear Urine pH >= 9.0 (5.0-9.0) Ur Specific [place] 1.020 (1.005-1.025) Urine Protein Trace (Neg-Trace) mg/dL Urine Glucose (UA) Negative (Negative) mg/dL Urine Ketones 15 (Negative) mg/dL Urine Blood Trace H (Negative) Urine Nitrite Negative (Negative) Ur Leukocyte Esterase Negative (Negative) Urine RBC >20 H (0-2) /HPF Urine WBC 0-5 (0-5) /HPF Ur Squamous Epith Cells 0-2 (0-2) /HPF Urine Bacteria None Seen (None Seen) Hyaline Casts 0-2 (0-2) /LPF Independent Interpretation I performed an independent interpretation of an: EKG Interpretation: Rate: 81 Rhythm: NSR [place]: normal Normal P waves. Normal DERIC. Normal QRS complex. ST T wave : non specific ST T wave changes inf leads, no IHSAN qTC: 473 prior studies: no change from November 2024 The study has been interpreted contemporaneously by me. . Independent Historian Clinical information obtained from an independent historian. History obtained from or confirmed by: EMS External Record Review External record reviewed: Outpatient record and Prior outpatient labs Prescription Management I considered prescription management with: Other Discharge Plan Discharge Clinical Impression: Acute anxiety, Acute hypokalemia Patient Disposition: Home, Self-Care Instructions: Hypokalemia (ED), Anxiety (ED) Additional Instructions: Your potassium was slightly low we gave you repletion continue to take your medications and supplements follow up with your doctor return for any worsening symptoms or concerns your urine had trace blood in it repeat your urine test with your doctor in 1 week You were seen in our Emergency Department today for treatment of a behavioral health issue. It is important after your visit that you follow up with either your behavioral health provider or a primary care doctor within 7 days.? If you have trouble finding a therapist you can reach out to [place] [phone] The [employer] [facility] and Crisis Lifeline can be reached 7 days a week 24 hours a day.? Call [phone] to speak with someone.? Return for any worsening symptoms or concerns such as thoughts of self harm or harm to others. Please call 911 if you feel your mental health is worsening.? Prescriptions: No Action metoclopramide HCl [Reglan] 10 mg tablet 5 mg PO Q6H PRN (Reason: nausea and vomiting) Qty: 10 0RF acetaminophen [Tylenol] 325 mg Tablet 325 mg PO QID PRN (Reason: Pain) famotidine 20 mg Tablet 20 mg PO BEDTIME lorazepam 0.5 mg Tablet 0.5 mg PO DAILY PRN (Reason: Anxiety) magnesium 250 mg Tablet 250 mg PO DAILY [place] 3 Fish Oil 684-1,200 mg Capsule,Delayed Release(Dr/Ec) 1 cap PO DAILY potassium chloride [K-Tab] 20 mEq tablet extended release 20 meq PO DAILY 30 Days Qty: 30 0RF metoclopramide HCl [Reglan] 10 mg tablet 10 mg PO Q6H PRN (Reason: nausea and vomiting) Qty: 10 0RF hydroxyzine HCl 10 mg tablet 10 mg PO TID PRN (Reason: anxiety) Qty: 14 0RF Print Language: Maltese
--- NOTE | 2025-03-21 06:27 | ECG_ITS ---
Test Reason : HYPOKALEMIA Blood Pressure : */* mmHG Vent. Rate : 81 BPM Atrial Rate : 81 BPM P-R Int : 128 ms QRS Dur : 84 ms QT Int : 408 ms P-R-T Axes : 81 52 48 degrees QTcB Int : 473 ms Normal sinus rhythm Normal ECG When compared with ECG of 28-Feb-2025 20:16, Sinus rhythm has replaced Junctional rhythm Referred By: Yvonne Boyd Electronically Signed By: SERA LANGE MD
[2025-03-21 07:04] LABS: Hematocrit 39.2 % (37.0-47.0); Hemoglobin 14.3 g/dl (12.0-16.0); Imm Gran Abs Auto 0.02 X10*3/uL (0.00-0.03); Imm Gran Pct Auto 0.3 % (0.0-0.4); Lymphocytes Absolute Auto 0.9 X10*3/uL (1.2-4.9); MANUAL DIFF FLAG NO; Mean Corpuscular HGB Conc 36.5 g/dl (31.0-35.0); Mean Corpuscular Hemoglobin 31.1 pg (27.0-33.0); Mean Corpuscular Volume 85.2 fL (80.0-98.0); NRBC Abs Auto 0.000 X10*3/uL (0.0-0.012); NRBC Pct Auto 0.0 /100WBC (0.0-0.2); Platelet Count 190 X10*3/uL (160-400); Red Blood Count 4.60 X10*6/uL (4.20-5.50); White Blood Count 6.7 X10*3/uL (4.8-10.8)
[2025-03-21 07:17] LABS: Alanine Aminotransferase 28 U/L (0-31); Albumin Level 4.9 g/dL (3.5-5.0); Alkaline Phosphatase 54 U/L (39-117); Anion Gap 17 (12-20); Aspartate Amino Transferase 35 U/L (5-31); Blood Urea Nitrogen 15 mg/dL (9-16); Calcium 9.7 mg/dL (8.4-10.2); Carbon Dioxide 22 mmol/L (22-29); Chloride 106 mmol/L (96-108); Creatinine Clr Calc Pharmacy 55.6; Estimated Glomerular Filt Rate > 60; Lipase 24 U/L (8-78); Magnesium 1.9 mg/dL (1.6-2.6); Potassium 3.0 mmol/L (3.3-5.1); Sodium 142 mmol/L (135-145); Total Protein 7.1 g/dL (6.5-8.0)
--- OUTSIDE RECORDS SUMMARY | 2025-03-21 07:18 | XMS_ITS | Encounter Summary ---
Author Organization [facility] Address [address] [place] [address] [place] [address] Phone Care Team Providers Care Coding Machine Operator Name Role Phone Ирина Chan MD Primary Care Provider [phone] Encounter Details Date Type Department Care Team (Late st Contact Info) Description 02/22/2020 Procedure Pass [facility], Ct Scan - [address] [address] Social History Tobacco Use Types Packs/Day Years Used Date Smoking Tobacco: Former Cigarettes Q uit: 1991 Smokeless Tobacco: Never Alcohol Use Standard Drinks/Week Comments No 0 (1 standard drink = 0.6 oz pur e alcohol) none for 5-6yrs Comments Unknown Sex and Gender Information Value Date Recorded Sex Assigned at Female 07/27/2019 12:51 PM EST Legal Sex Female 6:00 PM EDT Gender Identity Female 07/27/2019 12:51 PM EST Sexual Orientation Not on file documented as of this encounter Plan of Treatment Not on file documented as of this encounter Visit Diagnoses Not on filedocumented in this encounter Care Teams Coding Machine Operator Relationship Specialty Start Date End Date Иирна Chan MD [address] [place] [address] PCP - General Family Medicine 07/27/19 documented as of this encounter Additional Source Comments The information contained in this document represents components of the legal health record. It is not the complete legal health record.[facility]
--- OUTSIDE RECORDS SUMMARY | 2025-03-21 07:18 | XMS_ITS | Encounter Summary ---
Author Organization [facility] Address [address] [place] [address] Phone Care Team Providers Care Automatic Edger Name Role Phone Hoang Dennis MD Primary Care Provider [phone] Ирина Chan MD Primary Care Provider [phone] Encounter Details Date Type Department Care Team (Late st Contact Info) Description 08/27/2017 Procedure Pass [place] Admitting Dept - Virtual Department [address] [place] [address] Social History Tobacco Use Types Packs/Day Years [...] on filedocumented in this encounter Care Teams Automatic Edger Relationship Specialty Start Date End Date Hoang Dennis MD [address] [address] [email or web address] PCP - General Gastroenterology 07/07/17 07/26/19 Ирина Chan MD [address] [place] [address] PCP - General Family Medicine 07/27/19 documented as of this encounter Additional Source Comments The information contained in this document represents components of the legal health record. It is not the complete legal health record.[facility]
--- OUTSIDE RECORDS SUMMARY | 2025-03-21 07:18 | XMS_ITS | Encounter Summary ---
Author Organization [facility] Address [address] [place] [address] Phone Care Team Providers Care Baseball Pitcher Name Role Phone Иирна Chan MD Primary Care Provider [phone] Encounter Details Date Type Department Care Team (Latest Contact Info) Description 02/23/2020 Transcribe Orders [facility] [address] [place] [address] Nohemy Calloway NP [address] [place] [address] [email or web address] Nausea (Primary Dx); Diarrhea, unspecified type; Bloating; Abdominal pain, epigastric Social History Tobacco Use Types Packs/Day Years [...] on file documented as of this encounter Results * Stool fat/fiber exam (02/28/2020 10:27 AM EDT) FATTY ACID NORMAL NORMAL [facility] Neutral Fat, stool NORMAL NORMAL [facility] Stool (Stool) 02/28/2020 10: 27 AM EDT 02/28/2020 10:36 AM EDT Nohemy Calloway CALLISTHENICS INSTRUCTOR BODY FLUIDS AND STOOLS ORDE RABLES Final Result [address] [address] * Ova and parasites, stool (02/28/2020 10:27 AM EDT) Pathologist [facility] Special Requests None 02/28/2020 10:28 AM EDT [facility] DIRECT EXAM No parasites found by Trichrome Stain 03/08/2020 2:04 PM EDT [facility] DIRECT EXAM NO PARASITES FOUND BY DIRECT OR CONCENTRATION METHODS 03/08/2020 2:04 PM EDT [facility] Stool (Stool) 02/28/2020 10: 27 AM EDT 02/28/2020 10:37 AM EDT Nohemy Calloway CALLISTHENICS INSTRUCTOR MICROBIOLOGY - GENERAL ORDJohny RABRITA Final Result Performing Organization Address [facility] Co de Phone Number [address] [address] * H. pylori antigen, stool (02/28/2020 10:27 AM EDT) [facility] H.PYLORI AG Negative Negative [facility] Comment: (NOTE) Performed By: [email or web address] [address] [place] [id number] [employer] Instructor: Ruiz Gamboa MD, MS Test Performed by: [email or web address] [address] [place] [id number] Stool (Stool) 02/28/2020 10: 27 AM EDT 02/28/2020 10:36 AM EDT Nohemy Calloway CALLISTHENICS INSTRUCTOR BODY FLUIDS AND STOOLS ORDE RABLES Final Result Performing Organization Address City/[facility]/ZIP Co de Phone Number [facility] * Fecal immunochemical test x1 (FIT) (02/28/2020 10:27 AM EDT) Pathologist [facility] Immuno Fecal Occult Negative [facility] Stool (Stool) 02/28/2020 10: 27 AM EDT 02/28/2020 10:36 AM EDT Nohemy Calloway CALLISTHENICS INSTRUCTOR BODY FLUIDS AND STOOLS ORDE MONTEZ Final Result Performing Organization Address City/[facility]/ZIP Co de Phone Number [address] [address] * Giardia antigen screen (02/28/2020 10:27 AM EDT) Pathologist [facility] GIARDIA ANTIGEN Negative Negative [facility] OF LAB MED AND PAT+ Comment: (NOTE) ADDITIONAL INFORMATION Test Performed by Enzyme Immunoassay. Stool (Stool) 02/28/2020 10: 27 AM EDT 02/28/2020 10:36 AM EDT Nohemy Calloway NP MICROBIOLOGY - GENERAL ORDE RABRITA Final Result Performing Organization Address [facility]/ZIP Co de Phone Number [facility] DPT OF LAB MED AND PAT+ [address] [place] [address] * Stool culture (02/28/2020 10:27 AM EDT) Pathologist [facility] Special Requests None 02/28/2020 10:28 AM EDT [facility] Stool Culture NO SALMONELLA, SHIGELLA OR CAMPYLOBACTER ISOLATED 02/29/2020 10:02 AM EDT [facility] Stool (Stool) 02/28/2020 10: 27 AM EDT 02/28/2020 10:37 AM EDT Nohemy Calloway NP MICROBIOLOGY - GENERAL ORDE RABLES Final Result Performing Organization Address City/[facility]/ZIP Co de Phone Number [address] [address] * C. DIFFICILE PCR (02/28/2020 10:27 AM EDT) Pathologist [facility] C.DIFFICILE PCR Negative Negative [facility] C.DIFFICILE STRAIN PRESUMPTIVE NEGATIVE PRESUMPTIVE NEGATIVE [facility] Comment:Detection of 027/NAP 1/BI strains of C.difficile is presumptive and is solely for epidemiological purposes and is not intended to guide or monitor treatment of infections. Stool (Stool) 02/28/2020 10: 27 AM EDT 02/28/2020 10:36 AM EDT Nohemy Calloway NP MICROBIOLOGY [facility] Final Result Performing Organization Address [facility] Co de Phone Number [address] [address] * Ova and parasites, stool (02/27/2020 10:27 AM EDT) Special Requests None 02/28/2020 10:27 AM EDT [facility] DIRECT EXAM No parasites found by Trichrome Stain 03/08/2020 12:00 PM EDT [facility] DIRECT EXAM NO PARASITES FOUND BY DIRECT OR CONCENTRATION METHODS 03/08/2020 12:00 PM EDT [facility] Stool (Stool) 02/27/2020 10: 27 AM EDT 02/28/2020 10:34 AM EDT Nohemy Calloway NP [facility] Final Result Performing Organization Address [facility] Co de Phone Number [address] [address] * Ova and parasites, stool (02/25/2020 10:26 AM EDT) Special Requests None 02/28/2020 10:26 AM EDT [facility] DIRECT EXAM No parasites found by Trichrome Stain 03/08/2020 2:01 PM EDT [facility] DIRECT EXAM NO PARASITES FOUND BY DIRECT OR CONCENTRATION METHODS 03/08/2020 2:01 PM EDT [facility] Stool (Stool) 02/25/2020 10: 26 AM EDT 02/28/2020 10:34 AM EDT Nohemy Calloway CALLISTHENICS INSTRUCTOR MICROBIOLOGY - GENERAL NIHARIKA HERRMANN Final Result [address] [address] * C-Reactive Protein (02/23/2020 2:54 PM EDT) C REACTIVE PROTEIN <0.3 0.0 - 4.0 mg/L [facility] Blood 02/23/2020 2:54 PM EDT 02/23/2020 3:05 PM EDT Nohemy Calloway CALLISTHENICS INSTRUCTOR LAB BLOOD ORDERABLES Final Result [address] [address] * (ABNORMAL) Comprehensive metabolic panel (02/23/2020 2:54 PM EDT) SODIUM 142 133 - 146 mmol/L [facility] POTASSIUM 3.6 3.3 - 5.1 mmol/L [facility] CHLORIDE 102 96 - 108 mmol/L [facility] CO2 28 21 - 35 mmol/L [facility] BUN 6 6 - 19 mg/dL [facility] CREATININE 0.70 0.5 - 1.5 mg/dL [facility] GLUCOSE 115(H) 70 - 99 mg/dL [facility] ALBUMIN 4.6 3.9 - 4.8 g/dL [facility] TOTAL PROTEIN 6.7 6.5 - 8.0 g/dL [facility] CALCIUM 9.7 8.4 - 10.3 mg/dL [facility] ALKALINE PHOSPHATASE 48 39 - 117 U/L [facility] TOTAL BILIRUBIN 0.3 0.0 - 1.2 mg/dL [facility] AST 27 0 - 37 U/L [facility] ALT 15 0 - 40 U/L [facility] GLOBULIN 2.1 1 - 4.8 g/dL [facility] EGFR 98 >59 mL/min/1.7 3m2 [facility] Comment:Estimated glomerular filtration rate calculated using the CKD-EPI equation. ANION GAP 16 10 - 20 mmol/L [facility] Blood 02/23/2020 2:54 PM EDT 02/23/2020 3:05 PM EDT Nohemy Calloway CALLISTHENICS INSTRUCTOR LAB BLOOD ORDERABLES Final Result Performing Organization Address City/[facility] Co de Phone Number [address] [address] * Immunoglobulin A (02/23/2020 2:54 PM EDT) IgA 97 70 - 400 mg/dL [facility] Blood 02/23/2020 2:54 PM EDT 02/23/2020 3:05 PM EDT Nohemy Calloway CALLISTHENICS INSTRUCTOR LAB BLOOD ORDERABLES Final Result Performing Organization Address [facility] de Phone Number [address] [address] * Tissue transglutaminase IgA (02/23/2020 2:54 PM EDT) TTG IGA ANTIBODY <1.2 <4.0 (Negative) U/mL [facility] Blood 02/23/2020 2:54 PM EDT 02/23/2020 3:05 PM EDT Nohemydillon Garner Brodie CALLISTHENICS INSTRUCTOR LAB BLOOD ORDERABLES Final Result Performing Organization Address [facility] de Phone Number [facility] [address] [place] [address] documented in this encounter Visit Diagnoses Diagnosis Nausea- Primary Nausea alone Diarrhea, unspecified type Bloating Flatulence, eructation, and gas pain Abdominal pain, epigastric documented in this encounter Care Teams Baseball Pitcher Relationship Specialty Start Date End Date Ирина Chan MD [address] [place] [address] PCP - General Family Medicine 07/27/19 documented as of this encounter Additional Source Comments The information contained in this document represents components of the legal health record. It is not the complete legal health record.[facility]
--- OUTSIDE RECORDS SUMMARY | 2025-03-21 07:18 | XMS_ITS | Encounter Summary ---
Author Organization [facility] Address [address] [place] [address] Phone Care Team Providers Care Real Estate Transaction Manager Name Role Phone Hoang Dennis MD Primary Care Provider [phone] Ирина Chan MD Primary Care Provider [phone] Encounter Details Date Type Department Care Team (Late st Contact Info) Description 09/01/2017 Procedure Pass [facility], Ct Scan - [facility] [address] [place] [address] Social History Tobacco Use Types Packs/Day Years [...] on filedocumented in this encounter Care Teams Real Estate Transaction Manager Relationship Specialty Start Date End Date Hoang Dennis MD [address] [address] [email or web address] PCP - General Gastroenterology 07/07/17 07/26/19 Ирина Chan MD [address] [place] [address] PCP - General Family Medicine 07/27/19 documented as of this encounter Additional Source Comments The information contained in this document represents components of the legal health record. It is not the complete legal health record.[facility]
--- OUTSIDE RECORDS SUMMARY | 2025-03-21 07:18 | XMS_ITS | Clinical Summary ---
Author Organization [facility] Address [address] [place] [address] Phone Care Team Providers Care Media Operator Name Role Phone Ирина Chan MD Primary Care Provider [phone] Allergies Active Allergy Reactions Criticality Noted Date Comments [place] 01/10/2022 Lorazepam Other (See Comments) 07/08/2017 Suicidal thoughts Hazelnut 01/10/2022 Chlorhexidine Gluconate Rash Low 08/27/2017 Ibuprofen 01/10/2022 Other 08/20/2017 Aged fermented foods; almonds; hazelnuts(throat closes); soy; no MSG; gluten(IBS) Oxycodone Dizziness 07/08/2017 Omeprazole Dizziness 07/08/2017 Fluoxetine Other (See Comments) 07/08/2017 Lethargy, ALL SSRI'S Sucralfate 01/10/2022 Sumatriptan Other (See Comments) 07/08/2017 Suicidal thoughts Valacyclovir GI Upset 07/08/2017 Bupropion Hcl Other (See Comments) 07/08/2017 Suicidal thoughts Azithromycin Rash Low 07/08/2017 Ondansetron Rash Low 07/08/2017 Medications ondansetron (ZOFRAN-ODT) 4 MG disintegrating tablet Take 1 tablet (4 mg total) by mouth every 8 (eight) hours as needed for nausea. 15 tablet 0 Active famotidine (PEPCID) 20 MG tablet Take 20 mg by mouth 2 (two) times a day. Active Active Problems Problem Noted Date Diagnosed Date KARUNA positive 01/17/2022 Assessment & Plan (01/17/2022 11:07 PM EDT): I have reassured Elza that low positive KARUNA in itself does not make any diagnosis but may put her at an increased risk for developing one of the systemic rheumatic diseases associated with positive KARUNA at some point in the future. I took the liberty of getting couple of additional tests today to make sure that there are no other abnormalities of concern. Provided she has no clinical deterioration and no abnormalities on ordered tests she can return on as needed basis. She is free to call with any questions or problems. Other headache syndrome 01/17/2022 Assessment & Plan (01/17/2022 11:12 PM EDT): Keep a diary of her headaches with modifying factors to look for patterns and develop strategies for minimizing or preventing if possible. Itchy eyes 01/17/2022 Assessment & Plan (01/17/2022 11:13 PM EDT): Continue lubricating eyes drops. Diligent eye hygiene. Regular ocular checkups. Use sunglasses to avoid sunburn/damage to eye tissue. Seasonal allergies 01/17/2022 Assessment & Plan (01/17/2022 11:16 PM EDT): Avoid known allergens, use carefully antihistamine during active flare. Raynaud's disease without gangrene 01/17/2022 Assessment & Plan (01/17/2022 11:07 PM EDT): Keep warm, dress in layers. Optimize stress management strategies. Avoid vasoconstrictors in OTC products for cold/flu and sinus. 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 Specifically, we discussed that treatment requires many interventions and recognition that we are often unable to get patients completely pain free. Management of fibromyalgia requires patient engagement to address any underlying depression, anxiety, or sleep disorder. Further, patients are encouraged to engage in regular physical activity. Some studies have suggested that Sean Chi is effective. Other physical activity may including water-based aerobics, walking, biking, gentle yoga, swimming, Pilates etc. In terms of pharmacotherapy, there are many options, including tricyclic antidepressants, duloxetine, gabapentin or pregabalin, and cyclobenzaprine as well as other similar medications to those listed. In this case, the patient might try to focus on nonpharmacologic measures since she reports severe sensitivity to medications. I've encouraged the patient to follow up with the primary care physician for further management and the initiation of medications if she feels ready for it. Migraines 07/08/2017 Glaucoma 07/08/2017 Anxiety 07/08/2017 PTSD (post-traumatic stress disorder) 07/08/2017 Assessment & Plan (01/17/2022 11:13 PM EDT): Continue close follow-up with treating personal psychotherapist as scheduled Resolved Problems Problem Noted Date Diagnosed Date Resolved Date Gallstones 07/08/2017 09/10/2017 Assessment & Plan (07/08/2017 1:09 PM EST): I nicole a picture of right upper quadrant anatomy and explained the pathophysiology of gallbladder disease and gallstone formation. We reviewed the steps of laparoscopic cholecystectomy and discussed the expected postoperative course with need for activity restriction. We discussed risks of bleeding, infection, injury to adjacent structures including the common bile duct, failure to relieve pain, need for further endoscopic or surgical intervention, missed stone, bile leak, and chronic diarrhea. Social History Tobacco Use Types Packs/Day Years Used Date Smoking Tobacco: Former Cigarettes Q uit: 1991 Smokeless Tobacco: Never Alcohol Use Standard Drinks/Week Comments No 0 (1 standard drink = 0.6 oz pur e alcohol) none for 5-6yrs Education Answer Date Recorded Are you interested in more education? Not on jigna e 11/07/2022 Are you concerned about learning? Not on file 11/07/2022 No 11/07/2022 No 11/07/2022 Digital Access Answer Date Recorded No 12/06/2022 No 12/06/2022 No 12/06/2022 Reliable internet access at home? Not on file 12/06/2022 Device with a working camera? Not on file Comments Unknown Sex and Gender Information Value Date Recorded Sex Assigned at Female 07/27/2019 12:51 PM EST Legal Sex Female 6:00 PM EDT Gender Identity Female 07/27/2019 12:51 PM EST Sexual Orientation Not on file Last Filed Vital Signs Vital Sign Reading Time Taken Comments Blood Pressure 108/66 01/17/2022 1:08 PM EDT Pulse 67 01/17/2022 1:08 PM EDT Temperature 36.8 C (98.2 F) 02/22/2020 10:36 AM EDT Respiratory Rate 16 01/17/2022 1:08 PM EDT Oxygen Saturation 98% 01/17/2022 1:08 PM EDT Inhaled Oxygen Concentration - - Weight 47.2 kg (104 lb) 01/17/2022 1:08 PM EDT Height 157.5 cm (5' 2.01 ) 01/17/2022 1:08 PM ED T Body Mass Index 19.02 01/17/2022 1:08 PM EDT Plan of Treatment Health Maintenance Due Date Last Done Comments LIPID PANEL 1964 DEPRESSION SCREENING 1976 SMOKING Hx and SMOKELESS TOBACCO SCREENING 1977 HEPATITIS C SCREENING 1982 HIV ONE-TIME SCREENING (18-65 YEARS) 1982 PAP SMEAR 1985 MAMMOGRAM 2004 COLOGUARD 2009 COLONOSCOPY 2009 FOBT 2009 SIGMOIDOSCOPY 2009 VIRTUAL COLONOSCOPY 2009 PNEUMOCOCCAL VACCINES (50+ years) (1 of 1 - PCV) 2014 COLORECTAL CANCER SCREENING 02/27/2021 FIT TEST 02/27/2021 02/28/2020 INFLUENZA VACCINE (#1) 2025 , 05/08/2020, 03/13/2019, Additional history exists COVID-19 VACCINE ( season) 2025 07/20/2021, 10/23/2020, 09/29/2020 Adult Td,Tdap Booster 08/21/2025 08/21/2015, 006 RSV VACCINE (1 - 1-dose 75+ series) 10/28/2039 HEPATITIS A VACCINES Aged Out 09/18/2006, 12/12/19 06 No longer eligible based on patient's age to complete this topic ZOSTER VACCINES Completed 01/20/2020, 08/17/2019 HIB VACCINES Aged Out No longer eligi ble based on patient's age to complete this topic MENINGOCOCCAL VACCINES (ACWY) Aged Out No longer eligible based on patient's age to complete this topic MENINGOCOCCAL VACCINES (B) Aged Out N o longer eligible based on patient's age to complete this topic Medical Devices Not on file Procedures Procedure Name Priority Date/Time Associated Diagnosis Comments HC BLOOD OCCULT FECAL HGB DETER IA QUAL FECES 1-3 Routine 02/28/2020 10:27 AM EDT Nausea Diarrhea, unspecified type Bloating Abdominal pain, epigastric from Last 3 Months or Most Recently Relevant to Health Maintenance Results * Fecal immunochemical test x1 (FIT) (02/28/2020 10:27 AM EDT) Immuno Fecal Occult Negative [facility] Stool (Stool) 02/28/2020 10: 27 AM EDT 02/28/2020 10:36 AM EDT us Nohemy Calloway COAT OPERATOR BODY FLUIDS AND STOOLS NIHARIKA HERRMANN Final Result [address] [address] from Last 3 Months or Most Recently Relevant to Health Maintenance Insurance [facility] [place] [address] [place] [address] Advance Directives For more information, please contact: [phone] (9AM - 5PM [facility], [facility]-Thursday) * Full Code (Presumed) (Latest Code Status on File) Date Activated Date Inactivated Comments 08/27/2017 6:59 AM 08/27/2017 8:14 PM Care Teams Media Operator Relationship Specialty Start Date End Date Ирина Chan MD [address] [place] [address] PCP - General Family Medicine 07/27/19 Additional Source Comments The information contained in this document represents components of the legal health record. It is not the complete legal health record.[facility]
[2025-03-21 07:28] LABS: Troponin-I High Sensitivity < 2.7 ng/L (<3.5-17.0)
[2025-03-21] MEDS: Potassium Chloride Packet 20 MEQ PACKET 40 MEQ PO (08:47)
[2025-03-21] MEDS: Lidocaine HCl Viscous 2 % 15 ML SOLUTION MUCOUS MEM (08:48)
[2025-03-21] MEDS: Magnesium Hydrox/Alum Hydrox 30 ML ORAL.SUSP 15 ML PO (08:48)
--- NOTE | 2025-03-21 08:53 | PC.NURSE ---
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 She notes this happens a lot with stress. She always gets abd pain, n/v and then reports she becomes paralyzed. Alert and oriented, emotionally labile. Lungs clear bilat. Respirations even and non-labored. Abdomen soft, non-tender with positive bowel sounds. c/o intermittent abdominal pain secondary to stress. Patient states I can't process my life due to stress Positive pedal pulses with no edema. CARE team at the bedside to assess and provide a consult. Original Note: Medical History Anxiety PTSD (post-traumatic stress disorder
[2025-03-21 09:53] VITALS: BP 137/84; PULSE 85; RESP 16; TEMP 36.6; O2SAT 98
[2025-03-21 10:36] LABS: Appearance Urine Clear; Glucose Urine UA Negative (Negative); PH >= 9.0 (5.0-9.0); Specific Gravity - Urine 1.020 (1.005-1.025); UMIC TRIGGER UACC YES
--- NOTE | 2025-03-21 11:36 | MHC.CARE ---
Patient was referred to CARE team for psych consult after she presented via ambulance from home. Patient reported upper abdominal pain and expressed increased stress and anxiety due to being the primary caregiver for her elderly parents. Patient reports historically she has medical issues that are a result of her increased anxiety. According to [facility] records patient has a history of PTSD and anxiety, patient was seen here at [facility] back on 05/15/2017 after reporting depression and suicidal ideation. Patient reported at that time she was admitted to [facility] inpatient unit and it was ?traumatic for me?. She currently denies any suicidal or homicidal ideation plan or intent; she also denies any audio or visual hallucinations and does not appear to be responding to any internal stimuli currently. Patient reports she has been eating and her sleep is good for a period of time and states ?and then it?s not?. She reports increase stressors as she is the primary caregiver for her parents and it has become overwhelming for her. Patient reports her parents have [employer] services to help however, at times, no one comes or they call out for a multitude of reasons. Clinician discussed multiple levels of care including [facility] and referral to outpatient providers in the community. Patient declined and reports she has a therapists and medication provider through the [facility]. Clinician contacted patents daughter Shama Sierra @ [phone], she reports the trigger for patients increased anxiety stems from an argument that occurred with one of the PROOF TECHNICIAN?s that help to care for patients parents. Daughter reports patient is the primary caregiver for both her parents is very overwhelmed. Daughter reports she has no concerns over patient?s safety currently and patient has never expressed or made any suicidal statements or comments to her. She has no concerns with patient discharging home today. Clinician discussed services through [facility] for additional support for patient and her aging parents. Patient is agreeable to meet with case management for discharge planning and declined any mental health serves currently. Patient reports she feels safe to discharge home and will follow up with her [facility] providers. Thanh Rodriguez (medication prescriber) @ [address] [place] [address] Marcell Alejandro (therapists) @ [address] [place] [address] Ирина Chan (PCP) [facility] @ [address] [place], [place] [phone]
[2025-03-21 12:00] VITALS: BP 135/85; PULSE 84; RESP 16; O2SAT 98
--- NOTE | 2025-03-21 12:00 | PC.NURSE ---
CARE team evaluated and was cleared. Case management evaluated and was able to obtain additional services
--- NOTE | 2025-03-21 12:05 | MHC.CM.ED ---
Received case management consult from Dr Boyd once cleared by the Care Team. Per Lillian of Care Team, patient has extensive anxiety issue. Has also been helping care for her mother with dementia. Appears to have caregiver fatigue. Patient is not interested in respite care or inpatient psych. But is agreeable to more help at home. Met with patient to discuss discharge planning. Patient feels her mobility is off due to her low potassium level. However patient does not feel inpatient rehab is necessary at this time. VNA for nursing home and physical therapy offered. Patient declined stating the MA will be arranging physical therapy. Offered referral to [facility] for MOW or home health aides either for herself or her parents. Patient agreeable. Referral made via [facility]. Patient aware [facility] will reach out to her after d/c. Patient states her father can transport her home but she is not sure she can walk to the car. Wheelchair assistance offered. Patient states she still feels jittery and isn't ready for d/c yet. Dr Boyd made aware. No additional services will be able to be provided for patient. Betty ELLIS and Dr Boyd aware. Continue to monitor for d/c needs.
[2025-03-21 15:51] VITALS: BP 135/85; PULSE 84; RESP 16; TEMP 36.7; O2SAT 98
== END 2025-03-21 15:55 | disposition home or self-care (01) ==
PROVIDERS: Emergency Provider Emergency Medicine; PCP Family Medicine; Referring Provider Emergency Medicine
DX: F41.1 Generalized anxiety disorder (principal); R10.2 Pelvic and perineal pain; F41.0 Panic disorder [episodic paroxysmal anxiety]; E87.6 Hypokalemia; F43.9 Reaction to severe stress, unspecified; R11.2 Nausea with vomiting, unspecified; R06.02 Shortness of breath; Z79.899 Other long term (current) drug therapy
CPT/HCPCS: 36415; 80048; 80076; 81001; 83690; 83735; 84484; 85025; 93005; 96372; 99284; J0737; J1200

== ENCOUNTER → 2025-03-21 06:27 | Outpatient (BNV) | payer OTHER, SELFPAY | PROVIDERS: Emergency Provider Emergency Medicine; PCP Family Medicine; Visit Provider Internal Medicine Cardiovascular Disease | DX: E87.6 Hypokalemia (principal) | CPT/HCPCS: 93010 ==